=== PATIENT | male | born 1975 ===

== ENCOUNTER 2022-07-01 23:56 | Inpatient (IN) | payer SELFPAY ==
[2022-07-02] MEDS ORDERED: ONDANSETRON 4 MG/2 ML INJ ONE (00:43)
[2022-07-02] MEDS ORDERED: PANTOPRAZOLE 40 MG INJ IV ONE (00:46)
[2022-07-02] MEDS ORDERED: ONDANSETRON 4 MG/2 ML INJ IV ONE (00:47)
--- NOTE | 2022-07-02 01:12 | Emergency Department Report ---
ED GI Bleed HPI - General Stated complaint: VOMITING Time Seen by Provider: 07/02/22 00:29 - History of Present Illness Initial comments: 47 yo M brought in by nephew with nausea and coffee ground emesis all day yesterday. Pt is heavy alcoholic. Pt denies any fever or chills. No other modifying or associated factors. MD complaint: coffee ground emesis - Related Data Allergies Allergy/AdvReac Type Severity Reaction Status Date / Time No Known Allergies Allergy Verified 07/02/22 00:46 ED Review of Systems ROS: Stated complaint: VOMITING Other details as noted in HPI Comment: All other systems reviewed and negative Gastrointestinal: abdominal pain, nausea, vomiting, hematemesis ED Physical Exam - General Limitations: No Limitations General appearance: alert, in no apparent distress - Head Head exam: Present: normal inspection - Eye Eye exam: Present: normal appearance Pupils: Present: normal accommodation - ENT ENT exam: Present: normal exam, normal orophraynx, mucous membranes dry - Neck Neck exam: Present: normal inspection, full ROM. Absent: tenderness - Respiratory Respiratory exam: Present: normal lung sounds bilaterally. Absent: respiratory distress, accessory muscle use - Cardiovascular Cardiovascular Exam: Present: regular rate, normal rhythm, normal heart sounds - GI/Abdominal GI/Abdominal exam: Present: soft, tenderness (mild diffused tenderness ), normal bowel sounds. Absent: distended - Back Exam Back exam: Present: normal inspection, full ROM. Absent: tenderness - Neurological Exam Neurological exam: Present: alert, oriented X3 - Psychiatric Psychiatric exam: Present: normal affect, normal mood - Skin Skin exam: Present: warm, normal color ED Course Vital Signs 07/02/22 07/02/22 01:05 01:42 Temperature 97.8 F Pulse Rate 124 H 128 H Respiratory 22 24 Rate Blood Pressure 118/64 119/56 [Right] O2 Sat by Pulse 99 99 Oximetry - Reevaluation(s) Reevaluation #1: 07/02/22 02:52 As i was heading to this patient's room to evaluate him I was called urgently that the patient had a large coffee-ground emesis and fell. Patient was helped up back to his bed. He was started on IV fluids normal saline 1 L bolus pressured x1 while waiting for CBC and CMP especially is hemoglobin and hematocrit. Vital signs 107/66, with a heart rate of 119 and respiration of 22 with temp of 97.7. - Consultations Consultation #1: 07/02/22 01:38 Dr Burger consulted who plan to follow up with patient in the morning ED Medical Decision Making - Lab Data Result diagrams: 07/02/22 01:18 07/02/22 01:18 - Medical Decision Making here with nausea and coffee ground emesis in patient with history of heavy alcoholism-- concern for bleeding esophageal varies-- will go ahead and start ivf ns 1L bolus and Protonix 80 mg IV x 1 and order routine labs including CBC for H&H and CMP for electrolytes abnormality-- Lab reviewed and noted to be with hemoglobin of 3.6 and hematocrit of 13.1--at this point I suspected upper GI bleed and patient started/ordered for [address] Lambert was called to have this patient admitted. Dr Burger plan to have this patient scope in the morning. Critical care attestation.: If time is entered above; I have spent that time in minutes in the direct care of this critically ill patient, excluding procedure time. ED Disposition Clinical Impression: Nausea and vomiting in adult, Coffee ground emesis, Anemia due to blood loss, acute GIB (gastrointestinal bleeding) Qualifiers: GI bleed type/associated pathology: unspecified gastrointestinal hemorrhage type Qualified Code(s): K92.2 - Gastrointestinal hemorrhage, unspecified Disposition: ADMITTED INPATIENT Is pt being admited?: Yes Does the pt Need Aspirin: No Condition: Serious
--- NOTE | 2022-07-02 01:30 | XRay Report ---
CHEST 1 VIEW INDICATION / CLINICAL INFORMATION: SOB STUDY TIME: 112 COMPARISON: None available. FINDINGS: SUPPORT DEVICES: None HEART / MEDIASTINUM: No significant abnormality. LUNGS / PLEURA: No significant acute pulmonary or pleural abnormality. No pneumothorax. ADDITIONAL FINDINGS: No significant additional findings. Signer Name: Jamari Abarca MD Signed: 07/02/2022 1:26 AM Workstation Name: [id number]
[2022-07-02 02:00] LABS: Alanine Aminotransferase 42 units/L (7-56); Albumin 2.8 g/dL (3.9-5); Blood Urea Nitrogen 12 mg/dL (9-20); Calcium 7.6 mg/dL (8.4-10.2); Hemolysis Index 1
[2022-07-02 02:06] LABS: BUN/Creatinine Ratio 30; INR 1.61 (0.87-1.13)
[2022-07-02 02:07] LABS: Partial Thromboplastin Time 37.2 Sec. (24.2-36.6)
[2022-07-02 02:13] LABS: Mean Corpuscular HGB Conc 30 % (32-34); Red Blood Count 1.86 M/mm3 (3.65-5.03)
[2022-07-02 02:14] LABS: Hemoglobin 3.9 gm/dl (11.8-15.2)
[2022-07-02 02:15] LABS: Mean Corpuscular Volume 70 fl (84-94); Platelet Count 97 K/mm3 (140-440); Red Cell Distribution Width 23.7 % (13.2-15.2)
[2022-07-02] MEDS ORDERED: SODIUM CHLORIDE 0.9% 500 ML 500 ML IV ONE ×2 (02:28→04:17)
[2022-07-02 02:49] LABS: Basophils % (Manual) 0 % (0.0-1.8); Hypochromasia 3+; Total Cells Counted 100
[2022-07-02 02:50] LABS: Anisocytosis 2+
[2022-07-02 02:51] LABS: Platelet Estimate Consistent w Auto
[2022-07-02] MEDS ORDERED: MORPHINE 2 MG/1 ML INJ IV PRN ×2 (02:57→03:54)
[2022-07-02] MEDS ORDERED: ACETAMINOPHEN 325 MG TAB PO PRN ×2 (02:57→03:54)
[2022-07-02] MEDS ORDERED: ONDANSETRON 4 MG/2 ML INJ IV PRN ×2 (02:57→03:54)
--- NOTE | 2022-07-02 03:13 | Cat Scan Report ---
CT ABDOMEN AND PELVIS WITH AND WITHOUT CONTRAST INDICATION: abdominal pain, hematemesis for 3 days CONTRAST: 100 cc Omnipaque 350 IV COMPARISON: None available. All CT scans at this location are performed using CT dose reduction for ALARA by means of automated e xposure control. FINDINGS: Motion artifact is present. Lung bases clear. No pneumoperitoneum. Gallbladder and bile indigo ts without obvious abnormality. No urinary tract calculi or evidence of obstruction. No abdominal mas ses. No lymphadenopathy. Liver mildly enlarged and has a length of 19.2 cm. There is a question of mi ld border nodularity which suggests mild cirrhosis. Mild ascites is seen. No varices are noted. Splee n is not enlarged. Stomach is distended with fluid and food. No focal gastric abnormalities are noted. Second and third portions of the duodenum show a question of mild wall thickening with mild surrounding fatty strandin g seen near the second portion. No adriana ulceration is seen and no evidence of perforation or penetra tion are noted. No obstructive change is obvious. No evidence of bowel obstruction. Appendix normal. Right colon shows possible wall edema without definite surrounding inflammation. Several jejunal loop s show a question of diffuse wall thickening though this can be artifactual in this region on CT. No pelvic masses. IMPRESSION: 1. Apparent wall thickening is seen in the duodenum, especially the second portion, and there is mild surrounding fatty stranding. Findings may suggest mild duodenitis but I do not clearly see an ulcer and no complication is seen. 2. Questionable wall thickening noted diffusely in the jejunum, probably artifactual 3. Possible right colitis without obvious calcification 4. Evidence of mild cirrhosis without significant portal hypertension though mild ascites is present Signer Name: Jamari Abarca MD Signed: 07/02/2022 3:09 AM Workstation Name: [id number]
[2022-07-02] MEDS ORDERED: MORPHINE 4 MG/1 ML INJ IV PRN (03:54)
[2022-07-02] MEDS ORDERED: D5W/0.9% NACL 1,000 ML IV SCH (04:00)
--- NOTE | 2022-07-02 04:01 | History and Physical Report ---
History of Present Illness Date of examination: 07/02/22 Date of admission: 07/02/22 Chief complaint: Coffee-ground emesis History of present illness: 47 years old male with past medical history of alcohol abuse was brought in by nephew with nausea and coffee ground emesis all day yesterday. Pt is heavy alcoholic. Pt denies any fever or chills. No other modifying or associated factors. In the emergency room patient is found to have a hemoglobin of 3.9 and capri tocrit 13.0, lactic acid of 7.70 and serum alcohol level is 0.24. So going to admit the patient we are giving 3 unit of packed red blood cell. Put the patient on insulin drip and consult GI for evaluation Past History Past Medical History: other Past Surgical History: No surgical history (Alcohol abuse) Social history: alcohol abuse Family history: hypertension Medications and Allergies Allergies Allergy/AdvReac Type Severity Reaction Status Date / Time No Known Allergies Allergy Verified 07/02/22 00:46 Active Meds: Active Medications Acetaminophen (Acetaminophen 325 Mg Tab) 650 mg PO Q4H PRN PRN Reason: Pain MILD(1-3)/Fever >100.5/CARTWRIGHT Acetaminophen (Acetaminophen 325 Mg Tab) 650 mg PO Q4H PRN PRN Reason: Pain MILD(1-3)/Fever >100.5/CARTWRIGHT Albuterol/Ipratropium (Ipratropium/Albuterol Sulfate 3 Ml Ampul.Neb) 1 ampul IH Q6HRT ALBA Dextrose/Sodium Chloride (D5ns) 1,000 mls @ 100 mls/hr IV DIRECT ALBA Pantoprazole Sodium 80 mg/ (Sodium Chloride) 100 mls @ 10 mls/hr IV DIRECT ALBA Morphine Sulfate (Morphine 2 Mg/1 Ml Inj) 2 mg IV Q4H PRN PRN Reason: Pain, Moderate (4-6) Morphine Sulfate (Morphine 2 Mg/1 Ml Inj) 2 mg IV Q4H PRN PRN Reason: Pain, Moderate (4-6) Morphine Sulfate (Morphine 4 Mg/1 Ml Inj) 4 mg IV Q4H PRN PRN Reason: Pain , Severe (7-10) Ondansetron HCl (Ondansetron 4 Mg/2 Ml Inj) 4 mg IV Q8H PRN PRN Reason: Nausea And Vomiting Ondansetron HCl (Ondansetron 4 Mg/2 Ml Inj) 4 mg IV Q8H PRN PRN Reason: Nausea And Vomiting Sodium Chloride (Sodium Chloride 0.9% 10 Ml Flush Syringe) 10 ml IV BID ALBA Sodium Chloride (Sodium Chloride 0.9% 10 Ml Flush Syringe) 10 ml IV PRN PRN PRN Reason: LINE FLUSH Sodium Chloride (Sodium Chloride 0.9% 10 Ml Flush Syringe) 10 ml IV BID ALBA Sodium Chloride (Sodium Chloride 0.9% 10 Ml Flush Syringe) 10 ml IV PRN PRN PRN Reason: LINE FLUSH Review of Systems All systems: negative Gastrointestinal: abdominal pain, nausea, vomiting, hematemesis Exam - Constitutional Vitals: Temp Pulse Resp BP Pulse Ox 98.8 F 129 H 20 118/67 100 07/02/22 02:58 07/02/22 03:30 07/02/22 03:30 07/02/22 03:30 07/02/22 03:30 General appearance: Present: no acute distress, well-nourished - EENT Eyes: Present: PERRL ENT: hearing intact, clear oral mucosa - Neck Neck: Present: supple, normal ROM - Respiratory Respiratory effort: normal Respiratory: bilateral: CTA - Cardiovascular Heart Sounds: Present: S1 & S2. Absent: rub, click - Extremities Extremities: pulses symmetrical, No edema Peripheral Pulses: within normal limits - Abdominal General gastrointestinal: Present: soft, non-tender, non-distended, normal bowel sounds Male genitourinary: Present: normal - Integumentary Integumentary: Present: clear, warm, dry - Musculoskeletal Musculoskeletal: gait normal, strength equal bilaterally - Psychiatric Psychiatric: appropriate mood/affect, intact judgment & insight - Neurologic Neurologic: CNII-XII intact, moves all extremities Results - Labs CBC & Chem 7: 07/02/22 01:18 07/02/22 01:18 Labs: Laboratory Last Values WBC 6.2 K/mm3 (4.5-11.0) 07/02/22 01:18 RBC 1.86 M/mm3 (3.65-5.03) L 07/02/22 01:18 Hgb 3.9 gm/dl (11.8-15.2) L* 07/02/22 01:18 Hct 13.0 % (35.5-45.6) L* 07/02/22 01:18 MCV 70 fl (84-94) L 07/02/22 01:18 MCH 21 pg (28-32) L 07/02/22 01:18 MCHC 30 % (32-34) L 07/02/22 01:18 RDW 23.7 % (13.2-15.2) H 07/02/22 01:18 Plt Count 97 K/mm3 (140-440) L 07/02/22 01:18 Add Manual Diff Complete 07/02/22 01:18 Total Counted 100 07/02/22 01:18 Seg Neuts % (Manual) 93.0 % (40.0-70.0) H 07/02/22 01:18 Band Neutrophils % 0 % 07/02/22 01:18 Lymphocytes % (Manual) 4.0 % (13.4-35.0) L 07/02/22 01:18 Reactive Lymphs % (Man) 0 % 07/02/22 01:18 Monocytes % (Manual) 2.0 % (0.0-7.3) 07/02/22 01:18 Eosinophils % (Manual) 1.0 % (0.0-4.3) 07/02/22 01:18 Basophils % (Manual) 0 % (0.0-1.8) 07/02/22 01:18 Metamyelocytes % 0 % 07/02/22 01:18 Myelocytes % 0 % 07/02/22 01:18 Promyelocytes % 0 % 07/02/22 01:18 Blast Cells % 0 % 07/02/22 01:18 Nucleated RBC % Not Reportable 07/02/22 01:18 Seg Neutrophils # Man 5.8 K/mm3 (1.8-7.7) 07/02/22 01:18 Band Neutrophils # 0.0 K/mm3 07/02/22 01:18 Lymphocytes # (Manual) 0.2 K/mm3 (1.2-5.4) L 07/02/22 01:18 Abs React Lymphs (Man) 0.0 K/mm3 07/02/22 01:18 Monocytes # (Manual) 0.1 K/mm3 (0.0-0.8) 07/02/22 01:18 Eosinophils # (Manual) 0.1 K/mm3 (0.0-0.4) 07/02/22 01:18 Basophils # (Manual) 0.0 K/mm3 (0.0-0.1) 07/02/22 01:18 Metamyelocytes # 0.0 K/mm3 07/02/22 01:18 Myelocytes # 0.0 K/mm3 07/02/22 01:18 Promyelocytes # 0.0 K/mm3 07/02/22 01:18 Blast Cells # 0.0 K/mm3 07/02/22 01:18 WBC Morphology Not Reportable 07/02/22 01:18 Hypersegmented Neuts Not Reportable 07/02/22 01:18 Hyposegmented Neuts Not Reportable 07/02/22 01:18 Hypogranular Neuts Not Reportable 07/02/22 01:18 Smudge Cells Not Reportable 07/02/22 01:18 Toxic Granulation Not Reportable 07/02/22 01:18 Toxic Vacuolation Not Reportable 07/02/22 01:18 Dohle Bodies Not Reportable 07/02/22 01:18 Pelger-Huet Anomaly Not Reportable 07/02/22 01:18 Samuel Rods Not Reportable 07/02/22 01:18 Platelet Estimate Consistent w auto 07/02/22 01:18 Clumped Platelets Not Reportable 07/02/22 01:18 Plt Clumps, EDTA Not Reportable 07/02/22 01:18 Large Platelets Not Reportable 07/02/22 01:18 Giant Platelets Not Reportable 07/02/22 01:18 Platelet Satelliting Not Reportable 07/02/22 01:18 Plt Morphology Comment Not Reportable 07/02/22 01:18 RBC Morphology Not Reportable 07/02/22 01:18 Dimorphic RBCs Not Reportable 07/02/22 01:18 Polychromasia Not Reportable 07/02/22 01:18 Hypochromasia 3+ 07/02/22 01:18 Poikilocytosis Not Reportable 07/02/22 01:18 Anisocytosis 2+ 07/02/22 01:18 Microcytosis 1+ 07/02/22 01:18 Macrocytosis Not Reportable 07/02/22 01:18 Spherocytes Not Reportable 07/02/22 01:18 Pappenheimer Bodies Not Reportable 07/02/22 01:18 Sickle Cells Not Reportable 07/02/22 01:18 Target Cells Not Reportable 07/02/22 01:18 Tear Drop Cells Not Reportable 07/02/22 01:18 Ovalocytes Not Reportable 07/02/22 01:18 Helmet Cells Not Reportable 07/02/22 01:18 [place] Bodies Not Reportable 07/02/22 01:18 Ragland Rings Not Reportable 07/02/22 01:18 Spring Cells Not Reportable 07/02/22 01:18 Bite Cells Not Reportable 07/02/22 01:18 Crenated Cell Not Reportable 07/02/22 01:18 Elliptocytes Not Reportable 07/02/22 01:18 Acanthocytes (Spur) Not Reportable 07/02/22 01:18 Rouleaux Not Reportable 07/02/22 01:18 Hemoglobin C Crystals Not Reportable 07/02/22 01:18 Schistocytes Not Reportable 07/02/22 01:18 Malaria parasites Not Reportable 07/02/22 01:18 Aubrey Bodies Not Reportable 07/02/22 01:18 Hem Pathologist Commnt No 07/02/22 01:18 PT 21.1 Sec. (12.2-14.9) H 07/02/22 01:18 INR 1.61 (0.87-1.13) H 07/02/22 01:18 APTT 37.2 Sec. (24.2-36.6) H 07/02/22 01:18 Sodium 137 mmol/L (137-145) 07/02/22 01:18 Potassium 3.3 mmol/L (3.6-5.0) L 07/02/22 01:18 Chloride 98.0 mmol/L (98-107) 07/02/22 01:18 Carbon Dioxide 21 mmol/L (22-30) L 07/02/22 01:18 Anion Gap 21 mmol/L 07/02/22 01:18 BUN 12 mg/dL (9-20) 07/02/22 01:18 Creatinine 0.4 mg/dL (0.8-1.3) L 07/02/22 01:18 Estimated GFR > 60 ml/min 07/02/22 01:18 BUN/Creatinine Ratio 30 % 07/02/22 01:18 Glucose 327 mg/dL (75-100) H 07/02/22 01:18 Lactic Acid 7.70 mmol/L (0.7-2.0) H* 07/02/22 01:18 Calcium 7.6 mg/dL (8.4-10.2) L 07/02/22 01:18 Total Bilirubin 1.20 mg/dL (0.1-1.2) 07/02/22 01:18 AST 106 units/L (5-40) H 07/02/22 01:18 ALT 42 units/L (7-56) 07/02/22 01:18 Alkaline Phosphatase 104 units/L (35-129) 07/02/22 01:18 NT-Pro-B Natriuret Pep 29.96 pg/mL (0-450) 07/02/22 01:18 Total Protein 5.6 g/dL (6.3-8.2) L 07/02/22 01:18 Albumin 2.8 g/dL (3.9-5) L 07/02/22 01:18 Albumin/Globulin Ratio 1.0 % 07/02/22 01:18 Lipase 51 units/L (13-60) 07/02/22 01:18 Plasma/Serum Alcohol 0.24 % (0-0.07) H 07/02/22 01:18 Blood Type O POSITIVE 07/02/22 Unknown Crossmatch See Detail 07/02/22 Unknown - Imaging and Cardiology CT scan - abdomen: report reviewed Assessment and Plan VTE prophylaxis?: Mechanical Plan of care discussed with patient/family: Yes - Patient Problems (1) GIB (gastrointestinal bleeding) Current Visit: Yes Status: Acute Qualifiers: GI bleed type/associated pathology: unspecified gastrointestinal hemorrhage type Qualified Code(s): K92.2 - Gastrointestinal hemorrhage, unspecified Plan to address problem: Admit the patient to the medical telemetry. NPO. D5 normal saline at the rate of 100 cc/h. Protonix drip 8 mg/h. Transfuse 3 unit of packed red blood cell. GI evaluation. Recheck CBC in the morning (2) Anemia due to blood loss, acute Current Visit: Yes Status: Acute Plan to address problem: Protonix drip 8 mg/h. Transfuse 3 unit of packed red blood cell. GI evaluation. Recheck CBC in the morning (3) Alcohol abuse Current Visit: Yes Status: Acute Plan to address problem: Patient counseled regarding quit drinking. Patient is put on thiamine, folic acid and banana bag daily. (4) Coffee ground emesis Current Visit: Yes Status: Acute Plan to address problem: NPO. D5 normal saline at the rate of 100 cc/h. Protonix drip 8 mg/h. Transfuse 3 unit of packed red blood cell. GI evaluation. Recheck CBC in the morning (5) Nausea and vomiting in adult Current Visit: Yes Status: Acute Plan to address problem: NPO. D5 normal saline at the rate of 100 cc/h. Protonix drip 8 mg/h. Zofran 4 mg IV every 6 hours as needed. GI evaluation. Recheck CBC in the morning (6) DVT prophylaxis Current Visit: Yes Status: Acute Plan to address problem: SCD for DVT prophylaxis. Protonix drip 8 mg/h for GI prophylaxis. Patient is a full code
[2022-07-02] MEDS: PANTOPRAZOLE 80 MG in SODIUM CHLORIDE 0.9% 100 ML IV SCH ×2 (04:44→15:32)
[2022-07-02] MEDS: THIAMINE 100 MG, FOLIC ACID 1 MG, MULTIPLE VITAMIN INJ, ADULT 10 ML in SODIUM CHLORIDE ... IV SCH (04:44)
[2022-07-02] MEDS: IPRATROPIUM/ALBUTEROL SULFATE 3 ML AMPUL.NEB IH SCH ×3 (08:14→20:56)
--- NOTE | 2022-07-02 10:00 | Progress Note ---
Assessment and Plan Assessment and plan: VTE prophylaxis?: Mechanical Plan of care discussed with patient/family: Yes - Patient Problems -- GIB (gastrointestinal bleeding) Admit the patient to the medical telemetry. NPO. D5 normal saline at the rate of 100 cc/h. Protonix drip 8 mg/h. Transfuse 3 unit of packed red blood cell. GI evaluation. Recheck CBC in the morning --Anemia due to blood loss, acute Protonix drip 8 mg/h. Transfuse 3 unit of packed red blood cell. GI evaluation. Recheck CBC in the morning --History of chronic alcohol abuse Patient counseled regarding quit drinking. Patient is put on thiamine, folic acid and banana bag daily. --Coffee ground emesis NPO. D5 normal saline at the rate of 100 cc/h. Protonix drip 8 mg/h. Transfuse 3 unit of packed red blood cell. GI evaluation. Recheck CBC in the morning --Nausea and vomiting in adult NPO. D5 normal saline at the rate of 100 cc/h. Protonix drip 8 mg/h. Zofran 4 mg IV every 6 hours as needed. GI evaluation. Recheck CBC in the morning --DVT prophylaxis SCD for DVT prophylaxis. Protonix drip 8 mg/h for GI prophylaxis. Patient is a full code Follow GI evaluation and recommendations We will closely monitor the patient and adjust the management as needed Plan of care reviewed with the patient and his nurse I also discussed with [facility] extensively. recommended transfer to ICU after endoscopy if needed. Advance care planning; +35 minutes I have discussed with the patient his current medical problem Discussed tests and reports, I also discussed patient's diagnosis I discussed GI consult and recommendations I discussed, endoscopy procedure And the findings, I discussed patient's prognosis. Patient has many questions, I answered all of them History Interval history: I have seen and examined the patient at the bedside this morning Patient was admitted with upper GI bleeding, and severe anemia Currently receiving third unit of PRBC transfusion Patient did not have any new episodes of hematemesis this morning Complains of generalized weakness Vital signs noted Hospitalist Physical - Constitutional Vitals: Temp Pulse Resp BP Pulse Ox 98.3 F 123 H 16 108/47 100 07/02/22 07:40 07/02/22 08:40 07/02/22 08:40 07/02/22 08:40 07/02/22 08:40 General appearance: Present: no acute distress, well-nourished - EENT Eyes: Present: PERRL, EOM intact - Neck Neck: Present: supple, normal ROM - Respiratory Respiratory effort: normal Respiratory: bilateral: diminished, negative: rales, rhonchi, wheezing - Cardiovascular Rhythm: regular Heart Sounds: Present: S1 & S2 - Extremities Extremities: no ischemia, No edema - Abdominal General gastrointestinal: soft, non-tender, non-distended, normal bowel sounds - Integumentary Integumentary: Present: clear, warm - Psychiatric Psychiatric: appropriate mood/affect, cooperative - Neurologic Neurologic: CNII-XII intact, moves all extremities Results - Labs CBC & Chem 7: 07/03/22 03:58 07/03/22 03:58 Labs: Laboratory Last Values WBC 6.2 K/mm3 (4.5-11.0) 07/02/22 01:18 RBC 1.86 M/mm3 (3.65-5.03) L 07/02/22 01:18 Hgb 3.9 gm/dl (11.8-15.2) L* 07/02/22 01:18 Hct 13.0 % (35.5-45.6) L* 07/02/22 01:18 MCV 70 fl (84-94) L 07/02/22 01:18 MCH 21 pg (28-32) L 07/02/22 01:18 MCHC 30 % (32-34) L 07/02/22 01:18 RDW 23.7 % (13.2-15.2) H 07/02/22 01:18 Plt Count 97 K/mm3 (140-440) L 07/02/22 01:18 Add Manual Diff Complete 07/02/22 01:18 Total Counted 100 07/02/22 01:18 Seg Neuts % (Manual) 93.0 % (40.0-70.0) H 07/02/22 01:18 Band Neutrophils % 0 % 07/02/22 01:18 Lymphocytes % (Manual) 4.0 % (13.4-35.0) L 07/02/22 01:18 Reactive Lymphs % (Man) 0 % 07/02/22 01:18 Monocytes % (Manual) 2.0 % (0.0-7.3) 07/02/22 01:18 Eosinophils % (Manual) 1.0 % (0.0-4.3) 07/02/22 01:18 Basophils % (Manual) 0 % (0.0-1.8) 07/02/22 01:18 Metamyelocytes % 0 % 07/02/22 01:18 Myelocytes % 0 % 07/02/22 01:18 Promyelocytes % 0 % 07/02/22 01:18 Blast Cells % 0 % 07/02/22 01:18 Nucleated RBC % Not Reportable 07/02/22 01:18 Seg Neutrophils # Man 5.8 K/mm3 (1.8-7.7) 07/02/22 01:18 Band Neutrophils # 0.0 K/mm3 07/02/22 01:18 Lymphocytes # (Manual) 0.2 K/mm3 (1.2-5.4) L 07/02/22 01:18 Abs React Lymphs (Man) 0.0 K/mm3 07/02/22 01:18 Monocytes # (Manual) 0.1 K/mm3 (0.0-0.8) 07/02/22 01:18 Eosinophils # (Manual) 0.1 K/mm3 (0.0-0.4) 07/02/22 01:18 Basophils # (Manual) 0.0 K/mm3 (0.0-0.1) 07/02/22 01:18 Metamyelocytes # 0.0 K/mm3 07/02/22 01:18 Myelocytes # 0.0 K/mm3 07/02/22 01:18 Promyelocytes # 0.0 K/mm3 07/02/22 01:18 Blast Cells # 0.0 K/mm3 07/02/22 01:18 WBC Morphology Not Reportable 07/02/22 01:18 Hypersegmented Neuts Not Reportable 07/02/22 01:18 Hyposegmented Neuts Not Reportable 07/02/22 01:18 Hypogranular Neuts Not Reportable 07/02/22 01:18 Smudge Cells Not Reportable 07/02/22 01:18 Toxic Granulation Not Reportable 07/02/22 01:18 Toxic Vacuolation Not Reportable 07/02/22 01:18 Dohle Bodies Not Reportable 07/02/22 01:18 Pelger-Huet Anomaly Not Reportable 07/02/22 01:18 Samuel Rods Not Reportable 07/02/22 01:18 Platelet Estimate Consistent w auto 07/02/22 01:18 Clumped Platelets Not Reportable 07/02/22 01:18 Plt Clumps, EDTA Not Reportable 07/02/22 01:18 Large Platelets Not Reportable 07/02/22 01:18 Giant Platelets Not Reportable 07/02/22 01:18 Platelet Satelliting Not Reportable 07/02/22 01:18 Plt Morphology Comment Not Reportable 07/02/22 01:18 RBC Morphology Not Reportable 07/02/22 01:18 Dimorphic RBCs Not Reportable 07/02/22 01:18 Polychromasia Not Reportable 07/02/22 01:18 Hypochromasia 3+ 07/02/22 01:18 Poikilocytosis Not Reportable 07/02/22 01:18 Anisocytosis 2+ 07/02/22 01:18 Microcytosis 1+ 07/02/22 01:18 Macrocytosis Not Reportable 07/02/22 01:18 Spherocytes Not Reportable 07/02/22 01:18 Pappenheimer Bodies Not Reportable 07/02/22 01:18 Sickle Cells Not Reportable 07/02/22 01:18 Target Cells Not Reportable 07/02/22 01:18 Tear Drop Cells Not Reportable 07/02/22 01:18 Ovalocytes Not Reportable 07/02/22 01:18 Helmet Cells Not Reportable 07/02/22 01:18 [place] Bodies Not Reportable 07/02/22 01:18 Kunia Rings Not Reportable 07/02/22 01:18 [place] Cells Not Reportable 07/02/22 01:18 Bite Cells Not Reportable 07/02/22 01:18 Crenated Cell Not Reportable 07/02/22 01:18 Elliptocytes Not Reportable 07/02/22 01:18 Acanthocytes (Spur) Not Reportable 07/02/22 01:18 Rouleaux Not Reportable 07/02/22 01:18 Hemoglobin C Crystals Not Reportable 07/02/22 01:18 Schistocytes Not Reportable 07/02/22 01:18 Malaria parasites Not Reportable 07/02/22 01:18 Aubrey Bodies Not Reportable 07/02/22 01:18 Hem Pathologist Commnt No 07/02/22 01:18 PT 21.1 Sec. (12.2-14.9) H 07/02/22 01:18 INR 1.61 (0.87-1.13) H 07/02/22 01:18 APTT 37.2 Sec. (24.2-36.6) H 07/02/22 01:18 Sodium 137 mmol/L (137-145) 07/02/22 01:18 Potassium 3.3 mmol/L (3.6-5.0) L 07/02/22 01:18 Chloride 98.0 mmol/L (98-107) 07/02/22 01:18 Carbon Dioxide 21 mmol/L (22-30) L 07/02/22 01:18 Anion Gap 21 mmol/L 07/02/22 01:18 BUN 12 mg/dL (9-20) 07/02/22 01:18 Creatinine 0.4 mg/dL (0.8-1.3) L 07/02/22 01:18 Estimated GFR > 60 ml/min 07/02/22 01:18 BUN/Creatinine Ratio 30 % 07/02/22 01:18 Glucose 327 mg/dL (75-100) H 07/02/22 01:18 Lactic Acid 6.60 mmol/L (0.7-2.0) H* 07/02/22 03:20 Calcium 7.6 mg/dL (8.4-10.2) L 07/02/22 01:18 Total Bilirubin 1.20 mg/dL (0.1-1.2) 07/02/22 01:18 AST 106 units/L (5-40) H 07/02/22 01:18 ALT 42 units/L (7-56) 07/02/22 01:18 Alkaline Phosphatase 104 units/L (35-129) 07/02/22 01:18 NT-Pro-B Natriuret Pep 29.96 pg/mL (0-450) 07/02/22 01:18 Total Protein 5.6 g/dL (6.3-8.2) L 07/02/22 01:18 Albumin 2.8 g/dL (3.9-5) L 07/02/22 01:18 Albumin/Globulin Ratio 1.0 % 07/02/22 01:18 Lipase 51 units/L (13-60) 07/02/22 01:18 Plasma/Serum Alcohol 0.24 % (0-0.07) H 07/02/22 01:18 Blood Type O POSITIVE 07/02/22 Unknown Antibody Screen Negative 07/02/22 Unknown Crossmatch See Detail 07/02/22 Unknown Active Medications - Current Medications Current Medications: Generic Name Dose Route Start Last Admin Trade Name Freq PRN Reason Stop Dose Admin Acetaminophen 650 mg 07/02/22 02:57 Acetaminophen 325 Mg Tab PO Q4H PRN Pain MILD(1-3)/Fever >100.5/CARTWRIGHT Albuterol/Ipratropium 1 ampul 07/02/22 08:00 07/02/22 08:14 Ipratropium/Albuterol Sulfate 3 Ml Ampul.Neb IH Not Given Q6HRT ALBA Dextrose/Sodium Chloride 1,000 mls @ 100 mls/hr 07/02/22 04:00 D5ns IV DIRECT ALBA Pantoprazole Sodium 80 mg/ 100 mls @ 10 mls/hr 07/02/22 04:00 07/02/22 04:44 Sodium Chloride IV 8 mg/hr DIRECT ALBA 10 mls/hr Administration 8 MG/HR Thiamine HCl 100 mg/ Folic 1,011.2 mls @ 250 mls/hr 07/02/22 04:45 07/02/22 04:44 Acid 1 mg/ Multivitamins/ IV 250 mls/hr Minerals 10 ml/ Sodium DAILY@0600 ALBA Administration Chloride Morphine Sulfate 2 mg 07/02/22 03:54 Morphine 2 Mg/1 Ml Inj IV Q4H PRN Pain, Moderate (4-6) Morphine Sulfate 4 mg 07/02/22 03:54 Morphine 4 Mg/1 Ml Inj IV Q4H PRN Pain , Severe (7-10) Ondansetron HCl 4 mg 07/02/22 02:57 Ondansetron 4 Mg/2 Ml Inj IV Q8H PRN Nausea And Vomiting Sodium Chloride 10 ml 07/02/22 03:00 07/02/22 04:35 Sodium Chloride 0.9% 10 Ml Flush Syringe IV 10 ml BID ALBA Administration Sodium Chloride 10 ml 07/02/22 03:54 Sodium Chloride 0.9% 10 Ml Flush Syringe IV PRN PRN LINE FLUSH
[2022-07-02 10:23] LABS: Mean Corpuscular HGB Conc 31 % (32-34); Mean Corpuscular Volume 78 fl (84-94); Red Blood Count 2.38 M/mm3 (3.65-5.03)
[2022-07-02 10:30] LABS: Hemoglobin 5.8 gm/dl (11.8-15.2)
[2022-07-02 10:31] LABS: Hematocrit 18.6 % (35.5-45.6); Platelet Count 65 K/mm3 (140-440); Red Cell Distribution Width 27.3 % (13.2-15.2)
--- NOTE | 2022-07-02 11:28 | Consultation ---
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 Patient denies prior similar symptoms. He states that he had a bout of hematemesis the preceding day, and then 1 last night. He states it was not voluminous. He denies any abdominal pain, nausea, vomiting. He denies any melena or hematochezia, and states that his stools are brown. He denies syncope. He does drink alcohol and his admitting alcohol level was 0.24. He denies alcohol abuse. He denies NSAID use. He denies recent weakness or fatigue. He denies known history of liver disease or prior GI bleeding. He denies known history of peptic ulcer disease. He is on no medications. Medications reviewed. Past History Past Medical History: No medical history Past Surgical History: No surgical history (Alcohol abuse) Social history: alcohol abuse Family history: hypertension Medications and Allergies Allergies Allergy/AdvReac Type Severity Reaction Status Date / Time No Known Allergies Allergy Verified 07/02/22 00:46 Active Meds: Active Medications Acetaminophen (Acetaminophen 325 Mg Tab) 650 mg PO Q4H PRN PRN Reason: Pain MILD(1-3)/Fever >100.5/CARTWRIGHT Albuterol/Ipratropium (Ipratropium/Albuterol Sulfate 3 Ml Ampul.Neb) 1 ampul IH Q6HRT [facility] Last Admin: 07/02/22 08:14 Dose: Not Given Dextrose/Sodium Chloride (D5ns) 1,000 mls @ 100 mls/hr IV DIRECT [facility] Pantoprazole Sodium 80 mg/ (Sodium Chloride) 100 mls @ 10 mls/hr IV DIRECT [facility] Last Admin: 07/02/22 04:44 Dose: 8 mg/hr, 10 mls/hr Thiamine HCl 100 mg/ Folic Acid 1 mg/ Multivitamins/Minerals 10 ml/ Sodium Chloride 1,011.2 mls @ 250 mls/hr IV DAILY@0600 [facility] Last Admin: 07/02/22 04:44 Dose: 250 mls/hr Morphine Sulfate (Morphine 2 Mg/1 Ml Inj) 2 mg IV Q4H PRN PRN Reason: Pain, Moderate (4-6) Morphine Sulfate (Morphine 4 Mg/1 Ml Inj) 4 mg IV Q4H PRN PRN Reason: Pain , Severe (7-10) Ondansetron HCl (Ondansetron 4 Mg/2 Ml Inj) 4 mg IV Q8H PRN PRN Reason: Nausea And Vomiting Sodium Chloride (Sodium Chloride 0.9% 10 Ml Flush Syringe) 10 ml IV BID ALBA Last Admin: 07/02/22 04:35 Dose: 10 ml Sodium Chloride (Sodium Chloride 0.9% 10 Ml Flush Syringe) 10 ml IV PRN PRN PRN Reason: LINE FLUSH Review of Systems All systems: negative (As per HPI) Exam - Constitutional Vitals: Temp Pulse Resp BP Pulse Ox 98.3 F 123 H 16 108/47 100 07/02/22 07:40 07/02/22 08:40 07/02/22 08:40 07/02/22 08:40 07/02/22 08:40 General appearance: Present: no acute distress - EENT Eyes: Present: PERRL, EOM intact ENT: hearing intact - Respiratory Respiratory effort: normal Respiratory: bilateral: CTA - Cardiovascular Heart rate: 130 Rhythm: regular Heart Sounds: Present: S1 & S2 - Extremities Extremities: No edema - Abdominal General gastrointestinal: Present: soft, non-tender, normal bowel sounds Results - Labs CBC & Chem 7: 07/02/22 10:15 07/02/22 01:18 Labs: Abnormal lab results 07/02/22 07/02/22 07/02/22 Range/Units 01:18 01:18 01:18 RBC 1.86 L (3.65-5.03) M/mm3 Hgb 3.9 L* (11.8-15.2) gm/dl Hct 13.0 L* (35.5-45.6) % MCV 70 L (84-94) fl MCH 21 L (28-32) pg MCHC 30 L (32-34) % RDW 23.7 H (13.2-15.2) % Plt Count 97 L (140-440) K/mm3 Seg Neuts % (Manual) 93.0 H (40.0-70.0) % Lymphocytes % (Manual) 4.0 L (13.4-35.0) % Lymphocytes # (Manual) 0.2 L (1.2-5.4) K/mm3 PT (12.2-14.9) Sec. INR (0.87-1.13) APTT (24.2-36.6) Sec. Potassium 3.3 L (3.6-5.0) mmol/L Carbon Dioxide 21 L (22-30) mmol/L Creatinine 0.4 L (0.8-1.3) mg/dL Glucose 327 H (75-100) mg/dL Lactic Acid (0.7-2.0) mmol/L Calcium 7.6 L (8.4-10.2) mg/dL AST 106 H (5-40) units/L Total Protein 5.6 L (6.3-8.2) g/dL Albumin 2.8 L (3.9-5) g/dL Plasma/Serum Alcohol 0.24 H (0-0.07) % Crossmatch 07/02/22 07/02/22 07/02/22 Range/Units 01:18 01:18 03:20 RBC (3.65-5.03) M/mm3 Hgb (11.8-15.2) gm/dl Hct (35.5-45.6) % MCV (84-94) fl MCH (28-32) pg MCHC (32-34) % RDW (13.2-15.2) % Plt Count (140-440) K/mm3 Seg Neuts % (Manual) (40.0-70.0) % Lymphocytes % (Manual) (13.4-35.0) % Lymphocytes # (Manual) (1.2-5.4) K/mm3 PT 21.1 H (12.2-14.9) Sec. INR 1.61 H (0.87-1.13) APTT 37.2 H (24.2-36.6) Sec. Potassium (3.6-5.0) mmol/L Carbon Dioxide (22-30) mmol/L Creatinine (0.8-1.3) mg/dL Glucose (75-100) mg/dL Lactic Acid 7.70 H* 6.60 H* (0.7-2.0) mmol/L Calcium (8.4-10.2) mg/dL AST (5-40) units/L Total Protein (6.3-8.2) g/dL Albumin (3.9-5) g/dL Plasma/Serum Alcohol (0-0.07) % Crossmatch 07/02/22 07/02/22 07/02/22 Range/Units 08:58 10:15 Unknown RBC 2.38 L (3.65-5.03) M/mm3 Hgb 5.8 L* (11.8-15.2) gm/dl Hct 18.6 L* (35.5-45.6) % MCV 78 L (84-94) fl MCH 24 L (28-32) pg MCHC 31 L (32-34) % RDW 27.3 H (13.2-15.2) % Plt Count 65 L (140-440) K/mm3 Seg Neuts % (Manual) (40.0-70.0) % Lymphocytes % (Manual) (13.4-35.0) % Lymphocytes # (Manual) (1.2-5.4) K/mm3 PT (12.2-14.9) Sec. INR (0.87-1.13) APTT (24.2-36.6) Sec. Potassium (3.6-5.0) mmol/L Carbon Dioxide (22-30) mmol/L Creatinine (0.8-1.3) mg/dL Glucose (75-100) mg/dL Lactic Acid 5.00 H* (0.7-2.0) mmol/L Calcium (8.4-10.2) mg/dL AST (5-40) units/L Total Protein (6.3-8.2) g/dL Albumin (3.9-5) g/dL Plasma/Serum Alcohol (0-0.07) % Crossmatch See Detail - Imaging and Cardiology CT scan - abdomen: report reviewed (Mild cirrhosis. Thickening of wall around second portion of duodenum that could represent an ulcer.) Assessment and Plan 1. Hematemesisetiology unclear. Patient states he is only had 2 episodes, and he denies melena or lower GI bleeding. This is surprising given the hemoglobin dropping all the way down to 3.9. Peptic ulcer disease needs to be considered, as well as portal hypertension and esophageal varices. Labs are perplexing as patient does have thrombocytopenia consistent with portal hypertension, but his BUN and creatinine are normal, suggesting that he does not have a lot of blood in his intestinal tract. Transfuse as needed We will do urgent upper endoscopy for diagnostic and management purposes. After endoscopy, will decide whether ICU management and octreotide are warranted since endoscopy will be done imminently. 2. Alcohol abusepatient advised regarding abstinence
[2022-07-02] MEDS ORDERED: LIDOCAINE MPF (2%) 20 MG/1 ML VIAL 5 ML ONE (12:04)
[2022-07-02] MEDS ORDERED: propofoL 200 MG/20 ML VIAL IV ONE ×2 (12:04→12:05)
--- NOTE | 2022-07-02 12:05 | Post Operative Note ---
Pre-op diagnosis: Hematochezia Post-op diagnosis: other (Diverticulosis, with descending colon diverticulum with stigmata) Findings: 1. Single diverticulum in the mid ascending colon with some adherent streaks of heme, and on the inside, there were patchy superficial vessels with a single punctate raised area of red suggestive of a vessel. A clip was placed on this lesion. 2. Remainder of colon was normal-appearing with scattered diverticula noted throughout. There was no other blood noted in the colon and there was light yellow-brown stool that was liquid Procedure: Colonoscopy with clip placement Anesthesia: MAC Surgeon: YEN SIN Estimated blood loss: none Pathology: none Condition: stable Disposition: floor (1. Advance diet, 2. Transfuse as needed, 3. If no further bleeding, may discharge home tomorrow)
[2022-07-02] MEDS ORDERED: MIDAZOLAM 2 MG/2 ML INJ ONE (12:25)
--- NOTE | 2022-07-02 12:42 | Post Operative Note ---
Pre-op diagnosis: Hematemesis Post-op diagnosis: other (Distal esophageal varices, dark old blood in stomach, no antral ulcers and no duodenal lesions.) Findings: 1. 1-2+ distal esophageal varices, one with red spot stigmata. 4 bands were placed sequentially on 3 different columns, with some bleeding noted on placement of initial band that was minimal and spontaneously stopped. 2. Otherwise normal esophagus. 3. Gastric antrum was normal-appearing though there was some dark red blood staining the mucosa. 4. Gastric body and fundus was poorly visualized due to presence of dark old red blood with some degree of clot. There was no fresh red blood noted. No obvious gastric varices noted the visualization was poor. 5. Mildly nodular duodenal mucosa but no mass lesions ulcers or bleeding identified. Procedure: EGD with variceal banding Anesthesia: MAC Surgeon: YEN SIN Estimated blood loss: none Pathology: none Condition: stable Disposition: ICU (Would monitor in intensive care unit, transfuse as needed, and placed on IV octreotide drip)
--- NOTE | 2022-07-02 13:05 | Event Note ---
Date: 07/02/22 Patient with severe anemia and upper GI bleeding evaluated by GI Dr. Moncada Patient underwent EGD, with variceal banding [total of 4 bands] EGD findings reviewed GI started octreotide drip and planning to transfer the patient to ICU I discussed with Dr. Alfonso and requested critical care consult. We will closely monitor H&H, transfuse as needed Continue octreotide drip Continue to follow GI recommendations. Total critical care time today 60 minutes The high probability of a clinically significant, sudden or life threatening deterioration of the [GI, hematology] system(s) required my full and direct attention, intervention and personal management. The aggregate critical care time was [60] minutes. This time is in addition to time spent performing reported procedures but includes the following: [x] Data Review and interpretation [x] Patient assessment and monitoring of vital signs [x] Documentation [x] Medication orders and management
[2022-07-02] MEDS ORDERED: ACETAMINOPHEN IV 1,000 MG/100 ML BOTTLE IV ONE (13:12)
[2022-07-02] MEDS ORDERED: OCTREOTIDE 50 MCG/1 ML INJ IV ONE (14:37)
[2022-07-02] MEDS ORDERED: OCTREOTIDE 50 MCG in SODIUM CHLORIDE 0.9% 50 ML IV SCH (14:45)
[2022-07-02] MEDS ORDERED: SODIUM CHLORIDE 0.9% 500 ML 500 ML ONE (15:59)
[2022-07-02] MEDS: OCTREOTIDE 500 MCG in SODIUM CHLORIDE 0.9% 100 ML IV SCH (16:28)
--- NOTE | 2022-07-02 17:16 | Anesthesia Day of Surgery ---
Anesthesia Day of Surgery - Day of Surgery Patient Examined: Yes Patient H&P Reviewed: Yes Patient is NPO: Yes
--- NOTE | 2022-07-02 17:20 | Anesthesia Consultation ---
Anesthesia Consult and Med Hx Date of service: 07/02/22 - Airway Anesthetic Teeth Evaluation: Edentulous ROM Head & Neck: Adequate Mental/Hyoid Distance: Adequate Mallampati Class: Class II Intubation Access Assessment: Good - Pre-Operative Health Status ASA Pre-Surgery Classification: ASA3, Emergency Proposed Anesthetic Plan: MAC - Endocrine Hx Liver Disease: Yes - Hematic Hx Anemia: Yes (Hgb 3.9 on admission. Rec'd 2u PRBC; #3 hanging) - Other Systems Hx Alcohol Use: Yes (Heavy)
--- NOTE | 2022-07-02 17:21 | Post Anesthesia Evaluation ---
- Post Anesthesia Evaluation Patient Participated: Yes Airway Patent: Yes Stable Respiratory Function: Yes Nausea/Vomiting: No Temp > 96.8F: Yes Pain Manageable: Yes Adequeate Hydration: Yes Anesthesia Complications: No Block Receding Appropriately: Not Applicable Patient on Ventilator: No
[2022-07-02 20:56] LABS: Hematocrit 23.6 % (35.5-45.6); Hemoglobin 7.7 gm/dl (11.8-15.2)
[2022-07-03] MEDS: OCTREOTIDE 500 MCG in SODIUM CHLORIDE 0.9% 100 ML IV SCH ×3 (00:23→20:21)
[2022-07-03] MEDS: PANTOPRAZOLE 80 MG in SODIUM CHLORIDE 0.9% 100 ML IV SCH ×3 (00:23→20:22)
[2022-07-03] MEDS: IPRATROPIUM/ALBUTEROL SULFATE 3 ML AMPUL.NEB IH SCH ×2 (03:25→09:28)
[2022-07-03 04:50] LABS: Basophils % (Auto) 0.9 % (0.0-1.8); Eosinophils % (Auto) 0.7 % (0.0-4.3); Hematocrit 22.2 % (35.5-45.6); Hemoglobin 7.2 gm/dl (11.8-15.2); Lymphocytes # (Auto) 0.8 K/mm3 (1.2-5.4); Lymphocytes % (Auto) 14.3 % (13.4-35.0); Mean Corpuscular HGB Conc 33 % (32-34); Mean Corpuscular Volume 78 fl (84-94); Monocytes # (Auto) 0.6 K/mm3 (0.0-0.8); Monocytes % (Auto) 11.7 % (0.0-7.3); Red Blood Count 2.84 M/mm3 (3.65-5.03)
[2022-07-03 04:52] LABS: Platelet Count 47 K/mm3 (140-440)
[2022-07-03] MEDS ORDERED: SODIUM CHLORIDE 0.9% 500 ML 500 ML ONE (05:05)
[2022-07-03 05:18] LABS: Blood Urea Nitrogen 6 mg/dL (9-20); Calcium 7.4 mg/dL (8.4-10.2); Hemolysis Index 1
[2022-07-03 05:21] LABS: BUN/Creatinine Ratio 12
[2022-07-03 06:05] LABS: Color,Urine Straw (Yellow)
[2022-07-03 06:07] LABS: Mucus,Urine FEW /HPF
[2022-07-03] MEDS: THIAMINE 100 MG, FOLIC ACID 1 MG, MULTIPLE VITAMIN INJ, ADULT 10 ML in SODIUM CHLORIDE ... IV SCH (06:30)
[2022-07-03] MEDS: POTASSIUM CHLORIDE 10 MEQ 10 MEQ/100 ML BAG IV SCH ×4 (08:28→11:10)
--- NOTE | 2022-07-03 08:35 | Gastroenterology Progress Note ---
Assessment and Plan Patient appears to have had acute GI bleed from esophageal varices, though suspect patient may have secondary source for his severe anemia. He would benefit from further evaluation though in the setting of acute GI bleed would not recommend prepping for colonoscopy now. This can be done as an outpatient. May advance diet to pured consistency as tolerated. May advance to regular diet in a week Patient should complete another 24 hours of octreotide and PPI drip then can transition to oral pantoprazole - Patient Problems (1) Cirrhosis of liver Current Visit: Yes Status: Acute (2) Alcohol abuse Current Visit: Yes Status: Acute (3) GIB (gastrointestinal bleeding) Current Visit: Yes Status: Acute Qualifiers: GI bleed type/associated pathology: unspecified gastrointestinal hemorrhage type Qualified Code(s): K92.2 - Gastrointestinal hemorrhage, unspecified (4) Nausea and vomiting in adult Current Visit: Yes Status: Acute Subjective Date of service: 07/03/22 Principal diagnosis: GI bleed Interval history: Patient reports currently no abdominal pain. No more bleeding. I spoke with patient's nurse, reports no bleeding this morning and no reports of bleeding overnight. Of note patient status post another unit of blood. Hemoglobin stable with that. Objective - Constitutional Vitals: Temp Pulse Resp BP Pulse Ox 97.4 F L 96 H 17 116/73 100 07/03/22 07:57 07/03/22 08:05 07/03/22 08:05 07/03/22 08:00 07/03/22 08:05 General appearance: no acute distress - EENT Eyes: EOM intact - Neck Neck: supple - Respiratory Respiratory effort: normal - Gastrointestinal General gastrointestinal: Present: soft, non-tender - Integumentary Integumentary: Present: dry - Musculoskeletal Musculoskeletal: normal - Labs CBC & Chem 7: 07/03/22 03:58 07/03/22 03:58 Labs: Laboratory Results - last 24 hr 07/02/22 07/02/22 07/02/22 08:58 10:15 13:50 WBC 8.4 RBC 2.38 L Hgb 5.8 L* Hct 18.6 L* MCV 78 L MCH 24 L MCHC 31 L RDW 27.3 H Plt Count 65 L Lymph % (Auto) [place] % (Auto) Eos % (Auto) Baso % (Auto) Lymph # (Auto) [place] # (Auto) Eos # (Auto) Baso # (Auto) Seg Neutrophils % Seg Neutrophils # Sodium Potassium Chloride Carbon Dioxide Anion Gap BUN Creatinine Estimated GFR BUN/Creatinine Ratio Glucose POC Glucose 215 H Lactic Acid 5.00 H* Calcium Urine Color Urine Turbidity Specific [place] (Man) Ur Protein (Man) Ur Ketones (Man) Ur Nitrite (Man) Urine Bilirubin (Man) Leukocyte Esterase (Man) Urine WBC (Auto) Urine RBC (Auto) U Epithel Cells (Auto) Urine RBC (Manual) Urine Mucus Blood Type Antibody Screen Crossmatch 07/02/22 07/02/22 07/03/22 20:40 Unknown 01:05 WBC RBC Hgb 7.7 L Hct 23.6 L MCV MCH MCHC RDW Plt Count Lymph % (Auto) [place] % (Auto) Eos % (Auto) Baso % (Auto) Lymph # (Auto) [place] # (Auto) Eos # (Auto) Baso # (Auto) Seg Neutrophils % Seg Neutrophils # Sodium Potassium Chloride Carbon Dioxide Anion Gap BUN Creatinine Estimated GFR BUN/Creatinine Ratio Glucose POC Glucose Lactic Acid Calcium Urine Color Straw Urine Turbidity Clear Specific [place] (Man) 1.010 Ur Protein (Man) Negative Ur Ketones (Man) 4+ Ur Nitrite (Man) Negative Urine Bilirubin (Man) Negative Leukocyte Esterase (Man) Negative Urine WBC (Auto) 9.0 H Urine RBC (Auto) 2.0 U Epithel Cells (Auto) 1.0 Urine RBC (Manual) Negative Urine Mucus Few Blood Type O POSITIVE Antibody Screen Negative Crossmatch See Detail 07/03/22 07/03/22 03:58 03:58 WBC 5.4 RBC 2.84 L Hgb 7.2 L Hct 22.2 L MCV 78 L MCH 25 L MCHC 33 RDW 24.0 H Plt Count 47 L Lymph % (Auto) 14.3 [place] % (Auto) 11.7 H Eos % (Auto) 0.7 Baso % (Auto) 0.9 Lymph # (Auto) 0.8 L [place] # (Auto) 0.6 Eos # (Auto) 0.0 Baso # (Auto) 0.0 Seg Neutrophils % 72.4 H Seg Neutrophils # 3.9 Sodium 137 Potassium 3.3 L Chloride 99.8 Carbon Dioxide 16 L Anion Gap 25 BUN 6 L Creatinine 0.5 L Estimated GFR > 60 BUN/Creatinine Ratio 12 Glucose 258 H POC Glucose Lactic Acid Calcium 7.4 L Urine Color Urine Turbidity Specific [place] (Man) Ur Protein (Man) Ur Ketones (Man) Ur Nitrite (Man) Urine Bilirubin (Man) Leukocyte Esterase (Man) Urine WBC (Auto) Urine RBC (Auto) U Epithel Cells (Auto) Urine RBC (Manual) Urine Mucus Blood Type Antibody Screen Crossmatch
[2022-07-03] MEDS ORDERED: FOLIC ACID 1 MG in SODIUM CHLORIDE 0.9% 50 ML IV SCH (10:00)
--- NOTE | 2022-07-03 11:29 | Consultation ---
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 Patient denies prior similar symptoms. He states that he had a bout of hematemesis the preceding day, and then 1 last night. He states it was not voluminous. He denies any abdominal pain, nausea, vomiting. He denies any melena or hematochezia, and states that his stools are brown. He denies syncope. He does drink alcohol and his admitting alcohol level was 0.24. He denies alcohol abuse. He denies NSAID use. GI consulted and scoped yesterday and had varicies banded x4. Past History Past Medical History: No medical history Past Surgical History: No surgical history (Alcohol abuse) Social history: alcohol abuse Family history: hypertension Medications and Allergies Allergies Allergy/AdvReac Type Severity Reaction Status Date / Time No Known Allergies Allergy Verified 07/02/22 00:46 Home Medications Medication Instructions Recorded Confirmed Last Taken Type No Known Home Medications [No 07/02/22 07/02/22 Unknown History Reported Home Medications] Active Meds: Active Medications Acetaminophen (Acetaminophen 325 Mg Tab) 650 mg PO Q4H PRN PRN Reason: Pain MILD(1-3)/Fever >100.5/CARTWRIGHT Pantoprazole Sodium 80 mg/ (Sodium Chloride) 100 mls @ 10 mls/hr IV DIRECT ALBA Stop: 07/04/22 08:00 Last Admin: 07/03/22 10:14 Dose: 8 mg/hr, 10 mls/hr Thiamine HCl 100 mg/ Folic Acid 1 mg/ Multivitamins/Minerals 10 ml/ Sodium Chloride 1,011.2 mls @ 250 mls/hr IV DAILY@0600 ALBA Last Admin: 07/03/22 06:30 Dose: 250 mls/hr Octreotide Acetate 500 mcg/ (Sodium Chloride) 101 mls @ 10.1 mls/hr IV DIRECT ALBA; Protocol Stop: 07/04/22 15:00 Last Admin: 07/03/22 11:10 Dose: 50 mcg/hr, 10.1 mls/hr Potassium Chloride (Kcl 10meq/100ml) 10 meq in 100 mls @ 100 mls/hr IV Q1H ALBA Stop: 07/03/22 11:59 Last Admin: 07/03/22 11:10 Dose: 100 mls/hr Morphine Sulfate (Morphine 2 Mg/1 Ml Inj) 2 mg IV Q4H PRN PRN Reason: Pain, Moderate (4-6) Morphine Sulfate (Morphine 4 Mg/1 Ml Inj) 4 mg IV Q4H PRN PRN Reason: Pain , Severe (7-10) Ondansetron HCl (Ondansetron 4 Mg/2 Ml Inj) 4 mg IV Q8H PRN PRN Reason: Nausea And Vomiting Pantoprazole Sodium (Pantoprazole 40 Mg Tab) 40 mg PO BIDAC ALBA Sodium Chloride (Sodium Chloride 0.9% 10 Ml Flush Syringe) 10 ml IV PRN PRN PRN Reason: LINE FLUSH Review of Systems All systems: negative Exam - Constitutional Vitals: Temp Pulse Resp BP Pulse Ox 97.4 F L 95 H 26 H 130/82 100 07/03/22 07:57 07/03/22 11:00 07/03/22 11:00 07/03/22 11:00 07/03/22 11:00 General appearance: Present: no acute distress - EENT Eyes: Present: PERRL ENT: hearing intact, clear oral mucosa - Neck Neck: Present: supple, normal ROM - Respiratory Respiratory effort: normal Respiratory: bilateral: CTA - Cardiovascular Rhythm: regular - Abdominal General gastrointestinal: Present: soft, distended Male genitourinary: Present: deferred - Rectal Rectal Exam: deferred Results - Labs CBC & Chem 7: 07/03/22 03:58 07/03/22 03:58 Labs: Abnormal lab results 07/02/22 07/02/22 07/02/22 Range/Units 13:50 20:40 Unknown RBC (3.65-5.03) M/mm3 Hgb 7.7 L (11.8-15.2) gm/dl Hct 23.6 L (35.5-45.6) % MCV (84-94) fl MCH (28-32) pg RDW (13.2-15.2) % Plt Count (140-440) K/mm3 [place] % (Auto) (0.0-7.3) % Lymph # (Auto) (1.2-5.4) K/mm3 Seg Neutrophils % (40.0-70.0) % Potassium (3.6-5.0) mmol/L Carbon Dioxide (22-30) mmol/L BUN (9-20) mg/dL Creatinine (0.8-1.3) mg/dL Glucose (75-100) mg/dL POC Glucose 215 H (70-105) mg/dL Calcium (8.4-10.2) mg/dL Urine WBC (Auto) (0.0-6.0) /HPF Crossmatch See Detail 07/03/22 07/03/22 07/03/22 Range/Units 01:05 03:58 03:58 RBC 2.84 L (3.65-5.03) M/mm3 Hgb 7.2 L (11.8-15.2) gm/dl Hct 22.2 L (35.5-45.6) % MCV 78 L (84-94) fl MCH 25 L (28-32) pg RDW 24.0 H (13.2-15.2) % Plt Count 47 L (140-440) K/mm3 [place] % (Auto) 11.7 H (0.0-7.3) % Lymph # (Auto) 0.8 L (1.2-5.4) K/mm3 Seg Neutrophils % 72.4 H (40.0-70.0) % Potassium 3.3 L (3.6-5.0) mmol/L Carbon Dioxide 16 L (22-30) mmol/L BUN 6 L (9-20) mg/dL Creatinine 0.5 L (0.8-1.3) mg/dL Glucose 258 H (75-100) mg/dL POC Glucose (70-105) mg/dL Calcium 7.4 L (8.4-10.2) mg/dL Urine WBC (Auto) 9.0 H (0.0-6.0) /HPF Crossmatch - Imaging and Cardiology Chest x-ray: image reviewed (clear) CT scan - abdomen: report reviewed CT scan - pelvis: report reviewed Assessment and Plan 47 y/o male with esophageal varices s/p banding x4 with acute blood loss anemia, now stable. 1. Appreciate GI recs 2. Checking with floor to see if octreotide can be administered up there. 3. If ok with drip, will transfer to floor. Pureed diet. 4. Stop drinking.
[2022-07-03 13:21] LABS: Hematocrit 25.8 % (35.5-45.6); Hemoglobin 8.1 gm/dl (11.8-15.2)
--- NOTE | 2022-07-03 13:40 | Progress Note ---
Assessment and Plan Assessment and plan: This is a 47-year-old male with EtOH abuse admitted with a GI bleed s/p EGD with banding of 4 esophageal varices. Neuro: EtOH abuse -Patient's alcohol on presentation was 0.24 -CIWA protocol -Banana bag -EtOH cessation strongly encouraged -Maintain sleep-wake cycle Cardio: NAD -Blood pressure monitor per protocol Respiratory: NAD -SPO2 monitor per protocol -Supplemental oxygen as needed -Pulmonary hygiene GI: GI bleed, cirrhosis of liver, esophageal varices -GI consulted, appreciate recommendations -S/p EGD on 07/02 with banding of 4 esophageal varices -Pured diet -GI recommends outpatient colonoscopy -Octreotide and Protonix drip -24 hours +2111 mL : Hypokalemia, hypomagnesemia, metabolic acidosis -Record intake and output -Renally dose medications-avoid nephrotoxic medications -Replete potassium and magnesium -Trend BMP ID: SIRs, Lactic acidosis -Presented with tachycardia, and lactic acidosis -Presented with a lactic acid of 7 -Likely elevated in setting of GI bleed -Monitor WBC and temperature curve Endo: Hyperglycemia -Accu-Cheks AC at bedtime -Initiate SSI if needed -Avoid hypoglycemia Heme: Acute blood loss anemia -Presented with an H/H of 3.9/13 -S/p 5 units PRBC -Transfuse for hemoglobin less than 7 -Avoid chemical anticoagulation in setting of GI bleed -SCD to bilateral lower extremities while in bed The high probability of a clinically significant, sudden or life threatening deterioration of the [GI/heme] system(s) required my full and direct attention, intervention and personal management. The aggregate critical care time was [60] minutes. This time is in addition to time spent performing reported procedures but includes the following: [x] Data Review and interpretation [x] Patient assessment and monitoring of vital signs [x] Documentation [x] Medication orders and management Disposition Plan: transfer to imcu Total Time Spent with Patient (Minutes): 60 History Interval history: This is a 47-year-old male with EtOH abuse presented to hospital on 07/02 with his nephew for nausea and coffee ground emesis all day on 07 01. In the emergency department patient was found to have a hemoglobin of 3.9 hematocrit of 13, lactic acidosis of 7 and serum alcohol level of 0.24. Patient was admitted to the hospitalist service with consults to GI and transfused 3 units of PRBC. Hospital course to date: 07/03: Patient is on an octreotide and Protonix drip which GI would like to continue for 24 hours. Patient has been cleared for a pured consistency diet. No acute events reported overnight. Hospitalist Physical - Constitutional Vitals: Temp Pulse Resp BP Pulse Ox 98.1 F 100 H 20 123/77 100 07/03/22 12:00 07/03/22 13:00 07/03/22 13:00 07/03/22 13:00 07/03/22 13:00 General appearance: Present: no acute distress - EENT Eyes: Present: PERRL, EOM intact ENT: hearing intact, dentition normal - Neck Neck: Present: normal ROM - Respiratory Respiratory effort: normal Respiratory: bilateral: CTA - Cardiovascular Rhythm: regular Heart Sounds: Present: S1 & S2. Absent: systolic murmur, diastolic murmur - Extremities Extremities: no ischemia, pulses intact, pulses symmetrical, No edema, normal temperature, normal color Peripheral Pulses: within normal limits - Abdominal General gastrointestinal: soft, non-tender, non-distended, normal bowel sounds - Integumentary Integumentary: Present: warm, dry - Psychiatric Psychiatric: cooperative - Neurologic Neurologic: CNII-XII intact, no focal deficits, moves all extremities - Allied Health Allied health notes reviewed: nursing, social work Results - Labs CBC & Chem 7: 07/03/22 13:00 07/03/22 03:58 Labs: Laboratory Last Values WBC 5.4 K/mm3 (4.5-11.0) 07/03/22 03:58 RBC 2.84 M/mm3 (3.65-5.03) L 07/03/22 03:58 Hgb 7.2 gm/dl (11.8-15.2) L 07/03/22 03:58 Hct 22.2 % (35.5-45.6) L 07/03/22 03:58 MCV 78 fl (84-94) L 07/03/22 03:58 MCH 25 pg (28-32) L 07/03/22 03:58 MCHC 33 % (32-34) 07/03/22 03:58 RDW 24.0 % (13.2-15.2) H 07/03/22 03:58 Plt Count 47 K/mm3 (140-440) L 07/03/22 03:58 Lymph % (Auto) 14.3 % (13.4-35.0) 07/03/22 03:58 [place] % (Auto) 11.7 % (0.0-7.3) H 07/03/22 03:58 Eos % (Auto) 0.7 % (0.0-4.3) 07/03/22 03:58 Baso % (Auto) 0.9 % (0.0-1.8) 07/03/22 03:58 Lymph # (Auto) 0.8 K/mm3 (1.2-5.4) L 07/03/22 03:58 [place] # (Auto) 0.6 K/mm3 (0.0-0.8) 07/03/22 03:58 Eos # (Auto) 0.0 K/mm3 (0.0-0.4) 07/03/22 03:58 Baso # (Auto) 0.0 K/mm3 (0.0-0.1) 07/03/22 03:58 Add Manual Diff Complete 07/02/22 01:18 Total Counted 100 07/02/22 01:18 Seg Neutrophils % 72.4 % (40.0-70.0) H 07/03/22 03:58 Seg Neuts % (Manual) 93.0 % (40.0-70.0) H 07/02/22 01:18 Band Neutrophils % 0 % 07/02/22 01:18 Lymphocytes % (Manual) 4.0 % (13.4-35.0) L 07/02/22 01:18 Reactive Lymphs % (Man) 0 % 07/02/22 01:18 Monocytes % (Manual) 2.0 % (0.0-7.3) 07/02/22 01:18 Eosinophils % (Manual) 1.0 % (0.0-4.3) 07/02/22 01:18 Basophils % (Manual) 0 % (0.0-1.8) 07/02/22 01:18 Metamyelocytes % 0 % 07/02/22 01:18 Myelocytes % 0 % 07/02/22 01:18 Promyelocytes % 0 % 07/02/22 01:18 Blast Cells % 0 % 07/02/22 01:18 Nucleated RBC % Not Reportable 07/02/22 01:18 Seg Neutrophils # 3.9 K/mm3 (1.8-7.7) 07/03/22 03:58 Seg Neutrophils # Man 5.8 K/mm3 (1.8-7.7) 07/02/22 01:18 Band Neutrophils # 0.0 K/mm3 07/02/22 01:18 Lymphocytes # (Manual) 0.2 K/mm3 (1.2-5.4) L 07/02/22 01:18 Abs React Lymphs (Man) 0.0 K/mm3 07/02/22 01:18 Monocytes # (Manual) 0.1 K/mm3 (0.0-0.8) 07/02/22 01:18 Eosinophils # (Manual) 0.1 K/mm3 (0.0-0.4) 07/02/22 01:18 Basophils # (Manual) 0.0 K/mm3 (0.0-0.1) 07/02/22 01:18 Metamyelocytes # 0.0 K/mm3 07/02/22 01:18 Myelocytes # 0.0 K/mm3 07/02/22 01:18 Promyelocytes # 0.0 K/mm3 07/02/22 01:18 Blast Cells # 0.0 K/mm3 07/02/22 01:18 WBC Morphology Not Reportable 07/02/22 01:18 Hypersegmented Neuts Not Reportable 07/02/22 01:18 Hyposegmented Neuts Not Reportable 07/02/22 01:18 Hypogranular Neuts Not Reportable 07/02/22 01:18 Smudge Cells Not Reportable 07/02/22 01:18 Toxic Granulation Not Reportable 07/02/22 01:18 Toxic Vacuolation Not Reportable 07/02/22 01:18 Dohle Bodies Not Reportable 07/02/22 01:18 Pelger-Huet Anomaly Not Reportable 07/02/22 01:18 Samuel Rods Not Reportable 07/02/22 01:18 Platelet Estimate Consistent w auto 07/02/22 01:18 Clumped Platelets Not Reportable 07/02/22 01:18 Plt Clumps, EDTA Not Reportable 07/02/22 01:18 Large Platelets Not Reportable 07/02/22 01:18 Giant Platelets Not Reportable 07/02/22 01:18 Platelet Satelliting Not Reportable 07/02/22 01:18 Plt Morphology Comment Not Reportable 07/02/22 01:18 RBC Morphology Not Reportable 07/02/22 01:18 Dimorphic RBCs Not Reportable 07/02/22 01:18 Polychromasia Not Reportable 07/02/22 01:18 Hypochromasia 3+ 07/02/22 01:18 Poikilocytosis Not Reportable 07/02/22 01:18 Anisocytosis 2+ 07/02/22 01:18 Microcytosis 1+ 07/02/22 01:18 Macrocytosis Not Reportable 07/02/22 01:18 Spherocytes Not Reportable 07/02/22 01:18 Pappenheimer Bodies Not Reportable 07/02/22 01:18 Sickle Cells Not Reportable 07/02/22 01:18 Target Cells Not Reportable 07/02/22 01:18 Tear Drop Cells Not Reportable 07/02/22 01:18 Ovalocytes Not Reportable 07/02/22 01:18 Helmet Cells Not Reportable 07/02/22 01:18 Galo-Lyons Bodies Not Reportable 07/02/22 01:18 Cylinder Rings Not Reportable 07/02/22 01:18 [place] Cells Not Reportable 07/02/22 01:18 Bite Cells Not Reportable 07/02/22 01:18 Crenated Cell Not Reportable 07/02/22 01:18 Elliptocytes Not Reportable 07/02/22 01:18 Acanthocytes (Spur) Not Reportable 07/02/22 01:18 Rouleaux Not Reportable 07/02/22 01:18 Hemoglobin C Crystals Not Reportable 07/02/22 01:18 Schistocytes Not Reportable 07/02/22 01:18 Malaria parasites Not Reportable 07/02/22 01:18 Aubrey Bodies Not Reportable 07/02/22 01:18 Hem Pathologist Commnt No 07/02/22 01:18 PT 21.1 Sec. (12.2-14.9) H 07/02/22 01:18 INR 1.61 (0.87-1.13) H 07/02/22 01:18 APTT 37.2 Sec. (24.2-36.6) H 07/02/22 01:18 Sodium 137 mmol/L (137-145) 07/03/22 03:58 Potassium 3.3 mmol/L (3.6-5.0) L 07/03/22 03:58 Chloride 99.8 mmol/L (98-107) 07/03/22 03:58 Carbon Dioxide 16 mmol/L (22-30) L 07/03/22 03:58 Anion Gap 25 mmol/L 07/03/22 03:58 BUN 6 mg/dL (9-20) L 07/03/22 03:58 Creatinine 0.5 mg/dL (0.8-1.3) L 07/03/22 03:58 Estimated GFR > 60 ml/min 07/03/22 03:58 BUN/Creatinine Ratio 12 % 07/03/22 03:58 Glucose 258 mg/dL (75-100) H 07/03/22 03:58 POC Glucose 257 mg/dL (70-105) H 07/03/22 12:10 Lactic Acid 5.00 mmol/L (0.7-2.0) H* 07/02/22 08:58 Calcium 7.4 mg/dL (8.4-10.2) L 07/03/22 03:58 Magnesium 1.20 mg/dL (1.7-2.3) L 07/03/22 13:00 Total Bilirubin 1.20 mg/dL (0.1-1.2) 07/02/22 01:18 AST 106 units/L (5-40) H 07/02/22 01:18 ALT 42 units/L (7-56) 07/02/22 01:18 Alkaline Phosphatase 104 units/L (35-129) 07/02/22 01:18 NT-Pro-B Natriuret Pep 29.96 pg/mL (0-450) 07/02/22 01:18 Total Protein 5.6 g/dL (6.3-8.2) L 07/02/22 01:18 Albumin 2.8 g/dL (3.9-5) L 07/02/22 01:18 Albumin/Globulin Ratio 1.0 % 07/02/22 01:18 Lipase 51 units/L (13-60) 07/02/22 01:18 Urine Color Straw (Yellow) 07/03/22 01:05 Urine Turbidity Clear (Clear) 07/03/22 01:05 Specific [place] (Man) 1.010 (1.003-1.030) 07/03/22 01:05 Ur Protein (Man) Negative mg/dL (Negative) 07/03/22 01:05 Ur Ketones (Man) 4+ (Negative) 07/03/22 01:05 Ur Nitrite (Man) Negative (Negative) 07/03/22 01:05 Urine Bilirubin (Man) Negative (Negative) 07/03/22 01:05 Leukocyte Esterase (Man) Negative (Negative) 07/03/22 01:05 Urine WBC (Auto) 9.0 /HPF (0.0-6.0) H 07/03/22 01:05 Urine RBC (Auto) 2.0 /HPF (0.0-6.0) 07/03/22 01:05 U Epithel Cells (Auto) 1.0 /HPF (0-13.0) 07/03/22 01:05 Urine RBC (Manual) Negative (Negative) 07/03/22 01:05 Urine Mucus Few /HPF 07/03/22 01:05 Plasma/Serum Alcohol 0.24 % (0-0.07) H 07/02/22 01:18 Blood Type O POSITIVE 07/02/22 Unknown Antibody Screen Negative 07/02/22 Unknown Crossmatch See Detail 07/02/22 Unknown Iglesias/IV: Voiding Method Toilet Active Medications - Current Medications Current Medications: Generic Name Dose Route Start Last Admin Trade Name Freq PRN Reason Stop Dose Admin Acetaminophen 650 mg 07/02/22 02:57 Acetaminophen 325 Mg Tab PO Q4H PRN Pain MILD(1-3)/Fever >100.5/CARTWRIGHT Pantoprazole Sodium 80 mg/ 100 mls @ 10 mls/hr 07/02/22 04:00 07/03/22 10:14 Sodium Chloride IV 07/04/22 08:00 8 mg/hr DIRECT ALBA 10 mls/hr Administration 8 MG/HR Thiamine HCl 100 mg/ Folic 1,011.2 mls @ 250 mls/hr 07/02/22 04:45 07/03/22 06:30 Acid 1 mg/ Multivitamins/ IV 250 mls/hr Minerals 10 ml/ Sodium DAILY@0600 ALBA Administration Chloride Octreotide Acetate 500 mcg/ 101 mls @ 10.1 mls/hr 07/02/22 15:00 07/03/22 11:10 Sodium Chloride IV 07/04/22 15:00 50 mcg/hr DIRECT ALBA 10.1 mls/hr Administration Protocol 50 MCG/HR Morphine Sulfate 2 mg 07/02/22 03:54 Morphine 2 Mg/1 Ml Inj IV Q4H PRN Pain, Moderate (4-6) Morphine Sulfate 4 mg 07/02/22 03:54 Morphine 4 Mg/1 Ml Inj IV Q4H PRN Pain , Severe (7-10) Ondansetron HCl 4 mg 07/02/22 02:57 Ondansetron 4 Mg/2 Ml Inj IV Q8H PRN Nausea And Vomiting Pantoprazole Sodium 40 mg 07/04/22 16:00 Pantoprazole 40 Mg Tab PO BIDAC ALBA Sodium Chloride 10 ml 07/02/22 03:54 Sodium Chloride 0.9% 10 Ml Flush Syringe IV PRN PRN LINE FLUSH
[2022-07-03] MEDS ORDERED: LORazepam 2 MG/ML VIAL IV PRN ×2 (14:50)
[2022-07-03] MEDS ORDERED: MAGNESIUM SULFATE 4 GM/100 ML BAG IV ONE (14:52)
[2022-07-03] MEDS ORDERED: DEXTROSE 50% IN WATER (25GM) 50 ML SYRINGE IV PRN (17:12)
[2022-07-03 23:31] LABS: Hemoglobin 8.4 gm/dl (11.8-15.2)
[2022-07-04] MEDS: INSULIN LISPRO 100 UNIT/ML SUB-Q SCH ×5 (00:10→21:31)
[2022-07-04 05:28] LABS: Hematocrit 25.4 % (35.5-45.6); Hemoglobin 8.5 gm/dl (11.8-15.2); Mean Corpuscular HGB Conc 34 % (32-34); Mean Corpuscular Volume 78 fl (84-94); Red Blood Count 3.26 M/mm3 (3.65-5.03)
[2022-07-04 05:31] LABS: Platelet Count 56 K/mm3 (140-440); Red Cell Distribution Width 23.9 % (13.2-15.2)
[2022-07-04] MEDS: THIAMINE 100 MG, FOLIC ACID 1 MG, MULTIPLE VITAMIN INJ, ADULT 10 ML in SODIUM CHLORIDE ... IV SCH (05:57)
[2022-07-04] MEDS: PANTOPRAZOLE 80 MG in SODIUM CHLORIDE 0.9% 100 ML IV SCH (05:57)
[2022-07-04] MEDS: OCTREOTIDE 500 MCG in SODIUM CHLORIDE 0.9% 100 ML IV SCH (05:57)
[2022-07-04 06:08] LABS: Alanine Aminotransferase 45 units/L (7-56); Albumin 3.1 g/dL (3.9-5); Blood Urea Nitrogen 4 mg/dL (9-20); Calcium 7.4 mg/dL (8.4-10.2); Hemolysis Index 2
[2022-07-04 06:23] LABS: BUN/Creatinine Ratio 10
[2022-07-04] MEDS ORDERED: LACTATED RINGERS 1,000 ML IV ONE (07:25)
[2022-07-04] MEDS ORDERED: MAGNESIUM SULFATE 4 GM/100 ML BAG IV ONE (08:23)
--- NOTE | 2022-07-04 09:02 | Progress Note ---
Assessment and Plan Assessment and plan: Interval history: This is a 47-year-old male with EtOH abuse presented to hospital on 07/02 with his nephew for nausea and coffee ground emesis all day on 07 01. In the emergency department patient was found to have a hemoglobin of 3.9 hematocrit of 13, lactic acidosis of 7 and serum alcohol level of 0.24. Patient was admitted to the hospitalist service with consults to GI and transfused 3 units of PRBC. Hospital course to date: 07/03: Patient is on an octreotide and Protonix drip which GI would like to continue for 24 hours. Patient has been cleared for a pured consistency diet. No acute events reported overnight. 07/04: No acute complaints .Tolerating puree diet well. K replaced this AM. Awiating GI input regarding Octreotide gtt. Patient can likely be discharged in next 24-48hrs if ok with GI. Assessment and plan: This is a 47-year-old male with EtOH abuse admitted with a GI bleed s/p EGD with banding of 4 esophageal varices. Neuro: EtOH abuse -Patient's alcohol on presentation was 0.24 -CIWA protocol -Banana bag -EtOH cessation strongly encouraged -Maintain sleep-wake cycle #Alcohol abuse - behavioral health counseling administered which included education on benefits of alcohol cessation as well as options for quitting. +15 min. Cardio: NAD -Blood pressure monitor per protocol Respiratory: NAD -SPO2 monitor per protocol -Supplemental oxygen as needed -Pulmonary hygiene GI: GI bleed, cirrhosis of liver, esophageal varices -GI consulted, appreciate recommendations -S/p EGD on 07/02 with banding of 4 esophageal varices -Pured diet -GI recommends outpatient colonoscopy -Octreotide and Protonix drip -24 hours +2111 mL : Hypokalemia, hypomagnesemia, metabolic acidosis -Record intake and output -Renally dose medications-avoid nephrotoxic medications -Replete potassium and magnesium -Trend BMP ID: SIRs, Lactic acidosis -Presented with tachycardia, and lactic acidosis -Presented with a lactic acid of 7 -Likely elevated in setting of GI bleed -Monitor WBC and temperature curve Endo: Hyperglycemia -Accu-Cheks AC at bedtime -Initiate SSI if needed -Avoid hypoglycemia Heme: Acute blood loss anemia -Presented with an H/H of 3.9/13 -S/p 5 units PRBC -Transfuse for hemoglobin less than 7 -Avoid chemical anticoagulation in setting of GI bleed -SCD to bilateral lower extremities while in bed The high probability of a clinically significant, sudden or life threatening deterioration of the [multi] system(s) required my full and direct attention, intervention and personal management. The aggregate critical care time was [60] minutes. This time is in addition to time spent performing reported procedures but includes the following: [x] Data Review and interpretation [x] Patient assessment and monitoring of vital signs [x] Documentation [x] Medication orders and management History Interval history: NO acute complaints. Doing well. Hospitalist Physical - Physical exam Narrative exam: Physical Exam: VITAL SIGNS: Reviewed. GENERAL: The patient appears normally developed, Vital signs as documented. HEAD: No signs of head trauma. EYES: Pupils are equal. Extraocular motions intact. EARS: Hearing grossly intact. MOUTH: Oropharynx is normal. NECK: No adenopathy, no JVD. CHEST: Chest with clear breath sounds bilaterally. No wheezes, rales, or rhonchi. CARDIAC: Regular rate and rhythm. S1 and S2, without murmurs, gallops, or rubs. VASCULAR: No Edema. Peripheral pulses normal and equal in all extremities. ABDOMEN: Soft, non tender and non distended. No rebound or guarding, and no masses palpated. Bowel Sounds normal. MUSCULOSKELETAL: Good range of motion of all major joints. Extremities without clubbing, cyanosis or edema. NEUROLOGIC EXAM: Alert and oriented x 4. no focal sensory or strength deficits. PSYCHIATRIC: Mood normal. SKIN: detail exam as documented in skin assessment - Constitutional Vitals: Temp Pulse Resp BP Pulse Ox 98.9 F 75 18 91/50 100 07/04/22 08:00 07/04/22 08:00 07/04/22 08:00 07/04/22 08:00 07/04/22 08:00 General appearance: Present: no acute distress Results - Labs CBC & Chem 7: 07/04/22 04:58 07/04/22 04:58 Labs: Laboratory Last Values WBC 6.7 K/mm3 (4.5-11.0) 07/04/22 04:58 RBC 3.26 M/mm3 (3.65-5.03) L 07/04/22 04:58 Hgb 8.5 gm/dl (11.8-15.2) L 07/04/22 04:58 Hct 25.4 % (35.5-45.6) L 07/04/22 04:58 MCV 78 fl (84-94) L 07/04/22 04:58 MCH 26 pg (28-32) L 07/04/22 04:58 MCHC 34 % (32-34) 07/04/22 04:58 RDW 23.9 % (13.2-15.2) H 07/04/22 04:58 Plt Count 56 K/mm3 (140-440) L 07/04/22 04:58 Lymph % (Auto) 14.3 % (13.4-35.0) 07/03/22 03:58 [place] % (Auto) 11.7 % (0.0-7.3) H 07/03/22 03:58 Eos % (Auto) 0.7 % (0.0-4.3) 07/03/22 03:58 Baso % (Auto) 0.9 % (0.0-1.8) 07/03/22 03:58 Lymph # (Auto) 0.8 K/mm3 (1.2-5.4) L 07/03/22 03:58 [place] # (Auto) 0.6 K/mm3 (0.0-0.8) 07/03/22 03:58 Eos # (Auto) 0.0 K/mm3 (0.0-0.4) 07/03/22 03:58 Baso # (Auto) 0.0 K/mm3 (0.0-0.1) 07/03/22 03:58 Add Manual Diff Complete 07/02/22 01:18 Total Counted 100 07/02/22 01:18 Seg Neutrophils % 72.4 % (40.0-70.0) H 07/03/22 03:58 Seg Neuts % (Manual) 93.0 % (40.0-70.0) H 07/02/22 01:18 Band Neutrophils % 0 % 07/02/22 01:18 Lymphocytes % (Manual) 4.0 % (13.4-35.0) L 07/02/22 01:18 Reactive Lymphs % (Man) 0 % 07/02/22 01:18 Monocytes % (Manual) 2.0 % (0.0-7.3) 07/02/22 01:18 Eosinophils % (Manual) 1.0 % (0.0-4.3) 07/02/22 01:18 Basophils % (Manual) 0 % (0.0-1.8) 07/02/22 01:18 Metamyelocytes % 0 % 07/02/22 01:18 Myelocytes % 0 % 07/02/22 01:18 Promyelocytes % 0 % 07/02/22 01:18 Blast Cells % 0 % 07/02/22 01:18 Nucleated RBC % Not Reportable 07/02/22 01:18 Seg Neutrophils # 3.9 K/mm3 (1.8-7.7) 07/03/22 03:58 Seg Neutrophils # Man 5.8 K/mm3 (1.8-7.7) 07/02/22 01:18 Band Neutrophils # 0.0 K/mm3 07/02/22 01:18 Lymphocytes # (Manual) 0.2 K/mm3 (1.2-5.4) L 07/02/22 01:18 Abs React Lymphs (Man) 0.0 K/mm3 07/02/22 01:18 Monocytes # (Manual) 0.1 K/mm3 (0.0-0.8) 07/02/22 01:18 Eosinophils # (Manual) 0.1 K/mm3 (0.0-0.4) 07/02/22 01:18 Basophils # (Manual) 0.0 K/mm3 (0.0-0.1) 07/02/22 01:18 Metamyelocytes # 0.0 K/mm3 07/02/22 01:18 Myelocytes # 0.0 K/mm3 07/02/22 01:18 Promyelocytes # 0.0 K/mm3 07/02/22 01:18 Blast Cells # 0.0 K/mm3 07/02/22 01:18 WBC Morphology Not Reportable 07/02/22 01:18 Hypersegmented Neuts Not Reportable 07/02/22 01:18 Hyposegmented Neuts Not Reportable 07/02/22 01:18 Hypogranular Neuts Not Reportable 07/02/22 01:18 Smudge Cells Not Reportable 07/02/22 01:18 Toxic Granulation Not Reportable 07/02/22 01:18 Toxic Vacuolation Not Reportable 07/02/22 01:18 Dohle Bodies Not Reportable 07/02/22 01:18 Pelger-Huet Anomaly Not Reportable 07/02/22 01:18 Samuel Rods Not Reportable 07/02/22 01:18 Platelet Estimate Consistent w auto 07/02/22 01:18 Clumped Platelets Not Reportable 07/02/22 01:18 Plt Clumps, EDTA Not Reportable 07/02/22 01:18 Large Platelets Not Reportable 07/02/22 01:18 Giant Platelets Not Reportable 07/02/22 01:18 Platelet Satelliting Not Reportable 07/02/22 01:18 Plt Morphology Comment Not Reportable 07/02/22 01:18 RBC Morphology Not Reportable 07/02/22 01:18 Dimorphic RBCs Not Reportable 07/02/22 01:18 Polychromasia Not Reportable 07/02/22 01:18 Hypochromasia 3+ 07/02/22 01:18 Poikilocytosis Not Reportable 07/02/22 01:18 Anisocytosis 2+ 07/02/22 01:18 Microcytosis 1+ 07/02/22 01:18 Macrocytosis Not Reportable 07/02/22 01:18 Spherocytes Not Reportable 07/02/22 01:18 Pappenheimer Bodies Not Reportable 07/02/22 01:18 Sickle Cells Not Reportable 07/02/22 01:18 Target Cells Not Reportable 07/02/22 01:18 Tear Drop Cells Not Reportable 07/02/22 01:18 Ovalocytes Not Reportable 07/02/22 01:18 Helmet Cells Not Reportable 07/02/22 01:18 [place] Bodies Not Reportable 07/02/22 01:18 [place] Rings Not Reportable 07/02/22 01:18 [place] Cells Not Reportable 07/02/22 01:18 Bite Cells Not Reportable 07/02/22 01:18 Crenated Cell Not Reportable 07/02/22 01:18 Elliptocytes Not Reportable 07/02/22 01:18 Acanthocytes (Spur) Not Reportable 07/02/22 01:18 Rouleaux Not Reportable 07/02/22 01:18 Hemoglobin C Crystals Not Reportable 07/02/22 01:18 Schistocytes Not Reportable 07/02/22 01:18 Malaria parasites Not Reportable 07/02/22 01:18 Aubrey Bodies Not Reportable 07/02/22 01:18 Hem Pathologist Commnt No 07/02/22 01:18 PT 21.1 Sec. (12.2-14.9) H 07/02/22 01:18 INR 1.61 (0.87-1.13) H 07/02/22 01:18 APTT 37.2 Sec. (24.2-36.6) H 07/02/22 01:18 Sodium 134 mmol/L (137-145) L 07/04/22 04:58 Potassium 3.0 mmol/L (3.6-5.0) L 07/04/22 04:58 Chloride 98.2 mmol/L (98-107) 07/04/22 04:58 Carbon Dioxide 18 mmol/L (22-30) L 07/04/22 04:58 Anion Gap 21 mmol/L 07/04/22 04:58 BUN 4 mg/dL (9-20) L 07/04/22 04:58 Creatinine 0.4 mg/dL (0.8-1.3) L 07/04/22 04:58 Estimated GFR > 60 ml/min 07/04/22 04:58 BUN/Creatinine Ratio 10 % 07/04/22 04:58 Glucose 169 mg/dL (75-100) H 07/04/22 04:58 POC Glucose 263 mg/dL (70-105) H 07/03/22 22:01 Hemoglobin A1c 7.1 % (4-6) H 07/03/22 22:43 Lactic Acid 5.00 mmol/L (0.7-2.0) H* 07/02/22 08:58 Calcium 7.4 mg/dL (8.4-10.2) L 07/04/22 04:58 Magnesium 1.60 mg/dL (1.7-2.3) L 07/04/22 04:58 Total Bilirubin 1.70 mg/dL (0.1-1.2) H 07/04/22 04:58 AST 78 units/L (5-40) H 07/04/22 04:58 ALT 45 units/L (7-56) 07/04/22 04:58 Alkaline Phosphatase 97 units/L (35-129) 07/04/22 04:58 NT-Pro-B Natriuret Pep 29.96 pg/mL (0-450) 07/02/22 01:18 Total Protein 6.2 g/dL (6.3-8.2) L 07/04/22 04:58 Albumin 3.1 g/dL (3.9-5) L 07/04/22 04:58 Albumin/Globulin Ratio 1.0 % 07/04/22 04:58 Lipase 51 units/L (13-60) 07/02/22 01:18 Urine Color Straw (Yellow) 07/03/22 01:05 Urine Turbidity Clear (Clear) 07/03/22 01:05 Specific [place] (Man) 1.010 (1.003-1.030) 07/03/22 01:05 Ur Protein (Man) Negative mg/dL (Negative) 07/03/22 01:05 Ur Ketones (Man) 4+ (Negative) 07/03/22 01:05 Ur Nitrite (Man) Negative (Negative) 07/03/22 01:05 Urine Bilirubin (Man) Negative (Negative) 07/03/22 01:05 Leukocyte Esterase (Man) Negative (Negative) 07/03/22 01:05 Urine WBC (Auto) 9.0 /HPF (0.0-6.0) H 07/03/22 01:05 Urine RBC (Auto) 2.0 /HPF (0.0-6.0) 07/03/22 01:05 U Epithel Cells (Auto) 1.0 /HPF (0-13.0) 07/03/22 01:05 Urine RBC (Manual) Negative (Negative) 07/03/22 01:05 Urine Mucus Few /HPF 07/03/22 01:05 Plasma/Serum Alcohol 0.24 % (0-0.07) H 07/02/22 01:18 Blood Type O POSITIVE 07/02/22 Unknown Antibody Screen Negative 07/02/22 Unknown Crossmatch See Detail 07/02/22 Unknown Iglesias/IV: Voiding Method Toilet Active Medications - Current Medications Current Medications: Generic Name Dose Route Start Last Admin Trade Name Freq PRN Reason Stop Dose Admin Acetaminophen 650 mg 07/02/22 02:57 Acetaminophen 325 Mg Tab PO Q4H PRN Pain MILD(1-3)/Fever >100.5/CARTWRIGHT Dextrose 50 ml 07/03/22 17:12 Dextrose 50% In Water (25gm) 50 Ml Syringe IV Q30MIN PRN Hypoglycemia Protocol Folic Acid 1 mg 07/05/22 10:00 Folic Acid 1 Mg Tab PO DAILY [facility] Thiamine HCl 100 mg/ Folic 1,011.2 mls @ 250 mls/hr 07/02/22 04:45 07/04/22 05:57 Acid 1 mg/ Multivitamins/ IV 07/04/22 10:59 250 mls/hr Minerals 10 ml/ Sodium DAILY@0600 [facility] Administration Chloride Octreotide Acetate 500 mcg/ 101 mls @ 10.1 mls/hr 07/02/22 15:00 07/04/22 05:57 Sodium Chloride IV 07/04/22 15:00 50 mcg/hr DIRECT ALBA 10.1 mls/hr Administration Protocol 50 MCG/HR Magnesium Sulfate 4 gm in 100 mls @ 25 mls/hr 07/04/22 08:23 Magnesium Sulfate 4gm/100ml IV 07/04/22 12:22 ONCE ONE Insulin Human Lispro 0 unit 07/03/22 22:00 07/04/22 08:04 Insulin Lispro 100 Unit/Ml SUB-Q 2 unit ACHS [facility] Administration Protocol Lorazepam 2 mg 07/03/22 14:50 Lorazepam 2 Mg/Ml Vial IV Q1HR PRN CIWA-Ar 8-15 Lorazepam 4 mg 07/03/22 14:50 Lorazepam 2 Mg/Ml Vial IV Q1HR PRN CIWA-Ar 16-25 Multivitamins 1 each 07/05/22 10:00 Multivitamins ,Therapeutic Tab PO DAILY [facility] Ondansetron HCl 4 mg 07/02/22 02:57 Ondansetron 4 Mg/2 Ml Inj IV Q8H PRN Nausea And Vomiting Pantoprazole Sodium 40 mg 07/04/22 16:00 Pantoprazole 40 Mg Tab PO BIDAC [facility] Potassium Chloride 40 meq 07/04/22 10:00 Potassium Chloride Er 20 Meq Tab PO 07/04/22 14:01 Q4HR [facility] Sodium Chloride 10 ml 07/02/22 03:54 Sodium Chloride 0.9% 10 Ml Flush Syringe IV PRN PRN LINE FLUSH Thiamine HCl 100 mg 07/05/22 10:00 Thiamine 100 Mg Tab PO QDAY [facility]
[2022-07-04] MEDS: POTASSIUM CHLORIDE ER 20 MEQ TAB PO SCH ×2 (09:08→15:54)
[2022-07-04] MEDS: PANTOPRAZOLE 40 MG TAB PO SCH ×2 (15:54→18:18)
--- NOTE | 2022-07-04 18:29 | Progress Note ---
Assessment and Plan 1. Esophageal variceal bleedstatus post banding. No further bleeding. He has been doing well and is tolerating a diet well. His hemoglobin is stable. Okay to discharge home from GI standpoint. Would consider discharge on nonselective beta-blockers. Patient warrants outpatient follow-up for repeat endoscopy in 6 to 8 weeks to reassess esophageal varices as well as to assess gastric mucosa that was not well visualized during endoscopy. 2. Alcohol abusepatient advised regarding abstinence 3. Alcoholic liver diseasepatient advised regarding abstinence. He should also follow-up to monitor his liver disease. Subjective Date of service: 07/04/22 Principal diagnosis: GI bleed Interval history: Patient sitting in bed, tolerating p.o. well. Denies any GI bleeding. Brother in room. Objective - Constitutional Vitals: Vital Signs - 12hr 07/04/22 07/04/22 07/04/22 07:00 08:00 09:00 Temperature 98.9 F Pulse Rate 80 81 80 Pulse Rate [ 75 From Monitor] Respiratory 16 14 18 Rate Blood Pressure 91/50 91/50 112/77 O2 Sat by Pulse 100 100 100 Oximetry 07/04/22 07/04/22 07/04/22 10:00 11:00 12:00 Temperature 98.2 F Pulse Rate 80 78 93 H Pulse Rate [ 82 From Monitor] Respiratory 20 16 18 Rate Blood Pressure 109/72 100/61 100/61 O2 Sat by Pulse 100 100 100 Oximetry 07/04/22 07/04/22 07/04/22 13:00 14:00 15:00 Temperature Pulse Rate 87 77 75 Pulse Rate [ From Monitor] Respiratory 14 19 19 Rate Blood Pressure 121/65 126/57 99/53 O2 Sat by Pulse 100 100 100 Oximetry 07/04/22 07/04/22 07/04/22 16:00 17:00 18:00 Temperature 98.4 F Pulse Rate 89 86 92 H Pulse Rate [ 84 From Monitor] Respiratory 16 13 22 Rate Blood Pressure 99/53 110/71 107/68 O2 Sat by Pulse 100 100 100 Oximetry General appearance: Present: no acute distress - EENT Eyes: PERRL, EOM intact ENT: hearing intact - Respiratory Respiratory effort: normal - Gastrointestinal General gastrointestinal: Present: soft, non-tender - Labs CBC & Chem 7: 07/04/22 04:58 09/10/22 04:58 Labs: Abnormal lab results 07/03/22 07/03/22 07/03/22 Range/Units 22:01 22:43 22:43 RBC (3.65-5.03) M/mm3 Hgb 8.4 L (11.8-15.2) gm/dl Hct 26.0 L (35.5-45.6) % MCV (84-94) fl MCH (28-32) pg RDW (13.2-15.2) % Plt Count (140-440) K/mm3 Sodium (137-145) mmol/L Potassium (3.6-5.0) mmol/L Carbon Dioxide (22-30) mmol/L BUN (9-20) mg/dL Creatinine (0.8-1.3) mg/dL Glucose (75-100) mg/dL POC Glucose 263 H (70-105) mg/dL Hemoglobin A1c 7.1 H (4-6) % Calcium (8.4-10.2) mg/dL Magnesium (1.7-2.3) mg/dL Total Bilirubin (0.1-1.2) mg/dL AST (5-40) units/L Total Protein (6.3-8.2) g/dL Albumin (3.9-5) g/dL 07/04/22 07/04/22 07/04/22 Range/Units 04:58 04:58 04:58 RBC 3.26 L (3.65-5.03) M/mm3 Hgb 8.5 L (11.8-15.2) gm/dl Hct 25.4 L (35.5-45.6) % MCV 78 L (84-94) fl MCH 26 L (28-32) pg RDW 23.9 H (13.2-15.2) % Plt Count 56 L (140-440) K/mm3 Sodium 134 L (137-145) mmol/L Potassium 3.0 L (3.6-5.0) mmol/L Carbon Dioxide 18 L (22-30) mmol/L BUN 4 L (9-20) mg/dL Creatinine 0.4 L (0.8-1.3) mg/dL Glucose 169 H (75-100) mg/dL POC Glucose (70-105) mg/dL Hemoglobin A1c (4-6) % Calcium 7.4 L (8.4-10.2) mg/dL Magnesium 1.60 L (1.7-2.3) mg/dL Total Bilirubin 1.70 H (0.1-1.2) mg/dL AST 78 H (5-40) units/L Total Protein 6.2 L (6.3-8.2) g/dL Albumin 3.1 L (3.9-5) g/dL 07/04/22 07/04/22 Range/Units 11:32 15:57 RBC (3.65-5.03) M/mm3 Hgb (11.8-15.2) gm/dl Hct (35.5-45.6) % MCV (84-94) fl MCH (28-32) pg RDW (13.2-15.2) % Plt Count (140-440) K/mm3 Sodium (137-145) mmol/L Potassium (3.6-5.0) mmol/L Carbon Dioxide (22-30) mmol/L BUN (9-20) mg/dL Creatinine (0.8-1.3) mg/dL Glucose (75-100) mg/dL POC Glucose 239 H 243 H (70-105) mg/dL Hemoglobin A1c (4-6) % Calcium (8.4-10.2) mg/dL Magnesium (1.7-2.3) mg/dL Total Bilirubin (0.1-1.2) mg/dL AST (5-40) units/L Total Protein (6.3-8.2) g/dL Albumin (3.9-5) g/dL Medications & Allergies - Medications Allergies/Adverse Reactions: Allergies No Known Allergies Allergy (Verified 07/02/22 00:46) Home Medications: Home Medications Medication Instructions Recorded Confirmed Last Taken Type No Known Home Medications [No 07/02/22 07/02/22 Unknown History Reported Home Medications] Active Medications: Generic Name Dose Route Start Last Admin Trade Name Freq PRN Reason Stop Dose Admin Acetaminophen 650 mg 07/02/22 02:57 Acetaminophen 325 Mg Tab PO Q4H PRN Pain MILD(1-3)/Fever >100.5/CARTWRIGHT Dextrose 50 ml 07/03/22 17:12 Dextrose 50% In Water (25gm) 50 Ml Syringe IV Q30MIN PRN Hypoglycemia Protocol Folic Acid 1 mg 07/05/22 10:00 Folic Acid 1 Mg Tab PO DAILY [facility] Insulin Human Lispro 0 unit 07/03/22 22:00 07/04/22 16:18 Insulin Lispro 100 Unit/Ml SUB-Q 3 unit ACHS [facility] Administration Protocol Lorazepam 2 mg 07/03/22 14:50 Lorazepam 2 Mg/Ml Vial IV Q1HR PRN CIWA-Ar 8-15 Lorazepam 4 mg 07/03/22 14:50 Lorazepam 2 Mg/Ml Vial IV Q1HR PRN CIWA-Ar 16-25 Multivitamins 1 each 07/05/22 10:00 Multivitamins ,Therapeutic Tab PO DAILY [facility] Ondansetron HCl 4 mg 07/02/22 02:57 Ondansetron 4 Mg/2 Ml Inj IV Q8H PRN Nausea And Vomiting Pantoprazole Sodium 40 mg 07/04/22 16:00 07/04/22 18:18 Pantoprazole 40 Mg Tab PO Not Given BIDAC [facility] Sodium Chloride 10 ml 07/02/22 03:54 Sodium Chloride 0.9% 10 Ml Flush Syringe IV PRN PRN LINE FLUSH Thiamine HCl 100 mg 07/05/22 10:00 Thiamine 100 Mg Tab PO QDAY [facility]
[2022-07-05] MEDS: PANTOPRAZOLE 40 MG TAB PO SCH (08:30)
[2022-07-05] MEDS: INSULIN LISPRO 100 UNIT/ML SUB-Q SCH (09:29)
--- NOTE | 2022-07-05 09:30 | Gastroenterology Progress Note ---
Assessment and Plan Patient appears to have had acute GI bleed from esophageal varices, though suspect patient may have secondary source for his severe anemia. He would benefit from further evaluation though in the setting of acute GI bleed would not recommend prepping for colonoscopy now. This can be done as an outpatient. He is clinically stable recommend discharging on pantoprazole 40 mg daily and close outpatient follow-up with us for repeat EGD with banding and colonoscopy Given variceal bleed can consider discharge on nonselective beta-hazel though if there is clinical concern for side effects this can be reevaluated in his outpatient follow-up appointment - Patient Problems (1) Cirrhosis of liver Current Visit: Yes Status: Acute (2) Alcohol abuse Current Visit: Yes Status: Acute (3) GIB (gastrointestinal bleeding) Current Visit: Yes Status: Acute Qualifiers: GI bleed type/associated pathology: unspecified gastrointestinal hemorrhage type Qualified Code(s): K92.2 - Gastrointestinal hemorrhage, unspecified (4) Nausea and vomiting in adult Current Visit: Yes Status: Acute Subjective Date of service: 07/05/22 Principal diagnosis: GI bleed Interval history: Patient reports currently no abdominal pain. No more bleeding. Objective - Constitutional Vitals: Temp Pulse Resp BP Pulse Ox 99.0 F 88 13 92/41 99 07/05/22 08:12 07/05/22 07:00 07/05/22 07:00 07/05/22 07:00 07/05/22 07:00 General appearance: no acute distress - EENT Eyes: EOM intact - Neck Neck: supple - Respiratory Respiratory effort: normal - Cardiovascular Rhythm: regular - Gastrointestinal General gastrointestinal: Present: soft, non-tender - Integumentary Integumentary: Present: dry - Musculoskeletal Musculoskeletal: normal - Labs CBC & Chem 7: 07/04/22 04:58 07/04/22 04:58 Labs: Laboratory Results - last 24 hr 07/04/22 07/04/22 07/04/22 11:32 15:57 21:10 POC Glucose 239 H 243 H 256 H
--- NOTE | 2022-07-05 09:57 | Discharge Summary ---
Providers - Providers Date of Admission: 07/02/22 02:57 Date of discharge: 07/05/22 Attending physician: SPIKE PEACOCK MD 07/02/22 01:41 Consult to Physician [CONS] Routine Comment: call answering service/chandrakant Consulting Provider: YEN SIN Physician Instructions: Reason For Exam: Gi bleeding with alcoholism Primary care physician: [facility] Hospitalization Reason for admission: hematemesis Condition: Serious Hospital course: Interval history: This is a 47-year-old male with EtOH abuse presented to hospital on 07/02 with his nephew for nausea and coffee ground emesis all day on 07 01. In the emergency department patient was found to have a hemoglobin of 3.9 hematocrit of 13, lactic acidosis of 7 and serum alcohol level of 0.24. Patient was admitted to the hospitalist service with consults to GI and transfused 3 units of PRBC. Hospital course to date: 07/03: Patient is on an octreotide and Protonix drip which GI would like to continue for 24 hours. Patient has been cleared for a pured consistency diet. No acute events reported overnight. 07/04: No acute complaints .Tolerating puree diet well. K replaced this AM. Awiating GI input regarding Octreotide gtt. Patient can likely be discharged in next 24-48hrs if ok with GI. 07/05: Counseled on alcohol abstinence. Discharge home with rx for pantoprazole, nadalol, folic acid, thiamine. Ok to discharge from GI standpoint. Will need OP colonoscopy. Advised to follow up outpatient with GI and primary care physician. Assessment and plan: This is a 47-year-old male with EtOH abuse admitted with a GI bleed s/p EGD with banding of 4 esophageal varices. Neuro: EtOH abuse -Patient's alcohol on presentation was 0.24 -CIWA protocol -Banana bag -EtOH cessation strongly encouraged -Maintain sleep-wake cycle #Alcohol abuse - behavioral health counseling administered which included education on benefits of alcohol cessation as well as options for quitting. +15 min. Cardio: NAD -Blood pressure monitor per protocol Respiratory: NAD -SPO2 monitor per protocol -Supplemental oxygen as needed -Pulmonary hygiene GI: GI bleed, cirrhosis of liver, esophageal varices -GI consulted, appreciate recommendations -S/p EGD on 07/02 with banding of 4 esophageal varices -Pured diet -GI recommends outpatient colonoscopy -Octreotide and Protonix drip -24 hours +2111 mL : Hypokalemia, hypomagnesemia, metabolic acidosis -Record intake and output -Renally dose medications-avoid nephrotoxic medications -Replete potassium and magnesium -Trend BMP ID: SIRs, Lactic acidosis -Presented with tachycardia, and lactic acidosis -Presented with a lactic acid of 7 -Likely elevated in setting of GI bleed -Monitor WBC and temperature curve Endo: Hyperglycemia -Accu-Cheks AC at bedtime -Initiate SSI if needed -Avoid hypoglycemia Heme: Acute blood loss anemia -Presented with an H/H of 3.9/13 -S/p 5 units PRBC -Transfuse for hemoglobin less than 7 -Avoid chemical anticoagulation in setting of GI bleed -SCD to bilateral lower extremities while in bed Disposition: 01 HOME / SELF CARE / HOMELESS Final Discharge Diagnosis (Prints w/discharge instructions): esophageal varices Time spent for discharge: 35 Core Measure Documentation - Palliative Care Palliative Care/ Comfort Measures: Not Applicable - Core Measures Any of the following diagnoses?: none Exam - Physical Exam Narrative exam: Physical Exam: VITAL SIGNS: Reviewed. GENERAL: The patient appears normally developed, Vital signs as documented. HEAD: No signs of head trauma. EYES: Pupils are equal. Extraocular motions intact. EARS: Hearing grossly intact. MOUTH: Oropharynx is normal. NECK: No adenopathy, no JVD. CHEST: Chest with clear breath sounds bilaterally. No wheezes, rales, or rhonchi. CARDIAC: Regular rate and rhythm. S1 and S2, without murmurs, gallops, or rubs. VASCULAR: No Edema. Peripheral pulses normal and equal in all extremities. ABDOMEN: Soft, non tender and non distended. No rebound or guarding, and no masses palpated. Bowel Sounds normal. MUSCULOSKELETAL: Good range of motion of all major joints. Extremities without clubbing, cyanosis or edema. NEUROLOGIC EXAM: Alert and oriented x 4. no focal sensory or strength deficits. PSYCHIATRIC: Mood normal. SKIN: detail exam as documented in skin assessment - Constitutional Vitals: Temp Pulse Resp BP Pulse Ox 99.0 F 88 13 92/41 99 07/05/22 08:12 07/05/22 07:00 07/05/22 07:00 07/05/22 07:00 07/05/22 07:00 Plan Follow up with: STEVE JAEGER MD [Primary Care Provider] - 7 Days Prescriptions: Folic Acid [Folvite] 1 mg PO DAILY 30 Days #30 tablet Potassium Chloride [Klor-Con M20] 20 meq PO DAILY 3 Days #3 tab nadoloL [Nadolol] 20 mg PO DAILY 30 Days #30 tab Pantoprazole [Protonix TAB] 40 mg PO BIDAC 30 Days #60 tablet Thiamine [Vitamin B-1] 100 mg PO QDAY 30 Days #30 tablet
[2022-07-05] MEDS ORDERED: MULTIVITAMINS ,THERAPEUTIC TAB PO SCH (10:00)
[2022-07-05] MEDS ORDERED: FOLIC ACID 1 MG TAB PO SCH (10:00)
[2022-07-05] MEDS ORDERED: THIAMINE 100 MG TAB PO SCH (10:00)
[2022-07-05 11:10] VITALS: BP 119/78
== END 2022-07-05 11:45 | disposition home or self-care (01) | DRG 432 ==
LOC: ED 23:56 → 4A 07-02 02:57 → CC1 07-02 13:49 → IMCU 07-03 18:28
PROVIDERS: ADMIT Hospitalist; ATTEND Internal Medicine
PROC: 06L38CZ Occlusion of Esophageal Vein with Extraluminal Device, Via Natural or Artificial Opening Endoscopic (ICD-10-PCS; principal; 2022-07-02)
PROC: 30233N1 Transfusion of Nonautologous Red Blood Cells into Peripheral Vein, Percutaneous Approach (ICD-10-PCS; 2022-07-02)
DX: K70.30 Alcoholic cirrhosis of liver without ascites (principal); I85.11 Secondary esophageal varices with bleeding; D62 Acute posthemorrhagic anemia; E87.2 Acidosis; R65.10 Systemic inflammatory response syndrome (SIRS) of non-infectious origin without acute organ dysfunction; F10.10 Alcohol abuse, uncomplicated; Y90.9 Presence of alcohol in blood, level not specified; E87.6 Hypokalemia; E83.42 Hypomagnesemia; R73.9 Hyperglycemia, unspecified; Z82.49 Family history of ischemic heart disease and other diseases of the circulatory system
CPT/HCPCS: 36415; 71045; 74178; 80048; 80053; 80320; 81001; 82140; 82962; 83036; 83690; 83735; 83880; 85007; 85014; 85018; 85025; 85027; 85610; 85730; 86850; 86900; 86901; 86920; 87086; 94640; 96374; 96375; 99285; G0378; J2501; J3490; Q9967; C9113; G0480; J0131; J1815; J2250; J2354; J2405; J2704; J3411; J3475; J3480; J7030; J7040; J7042; J7120; P9016